=== PATIENT | female | born 1965 | race Two or more races ===

== ENCOUNTER 2022-12-28 02:12 | Inpatient (IN) | payer MEDICAID, OTHER ==
[~2022-12-28] VITALS: Ht 160 cm; Wt 132.6 kg
[2022-12-28] MEDS ORDERED: DONNATAL 5ml ORAL Elix (BELLADONNA ALK-PHENOBARB) PO ONE (02:45)
[2022-12-28] MEDS ORDERED: MAALOX PLUS or MAALOX 30 ML PO ONE (02:45)
[2022-12-28] MEDS ORDERED: LIDOCAINE VISCOUS 2% 15ML UD PO ONE (02:45)
[2022-12-28 03:28] LABS: Alanine Aminotransferase 13 U/L (7-40); Albumin 4.4 g/dL (3.2-4.8); Alkaline Phosphatase 122 U/L (46-116); Anion Gap 6 (5-15); Aspartate Aminotransferase 19 U/L (13-40); BUN/Creatinine Ratio 15.5 (10.0-20.0); Basophils # (auto) 0.1 10 ^3/uL (0-0.2); Basophils % (auto) 0.7 % (0.0-2.0); Blood Urea Nitrogen 13 mg/dL (9-23); Calcium 9.3 mg/dL (8.7-10.4); Carbon Dioxide 26 mmol/L (20-30); Chloride 103 mmol/L (98-107); Eosinophils # (auto) 0.2 10 ^3/uL (0-0.8); Eosinophils % (auto) 1.4 % (0.0-7.0); Glucose 111 mg/dL (74-106); Hematocrit 42.6 % (36.0-46.0); Hemoglobin 14.1 g/dL (12.2-16.2); Lipase 42 U/L (12-53); Lymphocytes # (auto) 1.9 10 ^3/uL (0.4-5.4); Lymphocytes % (auto) 15.3 % (10.0-50.0); Mean Corpuscular Hemoglobin 29.1 pg (28.0-32.0); Mean Corpuscular Hgb Conc. 33.2 g/dL (32.0-36.0); Mean Corpuscular Volume 87.7 fL (80.0-100.0); Monocytes # (auto) 0.7 10 ^3/uL (0-1.3); Monocytes % (auto) 5.5 % (0.0-12.0); Neutrophils # (auto) 9.4 10 ^3/uL (1.6-8.6); Neutrophils % (auto) 77.1 % (37.0-80.0); Nucleated Red Blood Cells % 0.1 %; Potassium 4.2 mmol/L (3.5-5.1); Red Blood Cells 4.85 10^6/uL (4.0-5.20); Red Cell Distribution Width 13.6 % (11.8-14.3); Sodium 135 mmol/L (136-145); White Blood Cell 12.2 10^3/uL (4.4-10.8)
[2022-12-28 03:29] LABS: Bilirubin, Total 0.8 mg/dL (0.2-1.0); Total Protein 7.2 g/dL (5.7-8.2)
[2022-12-28] MEDS ORDERED: ONDANSETRON HCL 4 MG/2 ML VIAL IV ONE ×2 (04:30→07:00)
[2022-12-28] MEDS ORDERED: HYDROmorphone HCL 2 MG/ML VL/or syr IV ONE (04:30)
[2022-12-28] MEDS ORDERED: SODIUM CHLORIDE 0.9% 1,000 ML IV ONE (07:00)
[2022-12-28] MEDS ORDERED: cefTRIAXone 1GM/50ML D5W 50 ML IV ONE (07:00)
[2022-12-28] MEDS ORDERED: KETOROLAC TROMETH 30 MG/ML 1ML VIAL IV ONE (07:00)
[2022-12-28] MEDS ORDERED: metroNIDAZOLE 500MG/100ML 100 ML IV ONE (07:00)
[2022-12-28] MEDS ORDERED: ONDANSETRON HCL 4 MG/2 ML VIAL IV PRN (11:30)
[2022-12-28] MEDS ORDERED: DOCUSATE SOD 100 MG CAP PO PRN (11:30)
[2022-12-28] MEDS ORDERED: ACETAMINOPHEN 325 MG TAB PO PRN (11:30)
[2022-12-28] MEDS ORDERED: HYDROcodone-ACET 5/325MG TAB PO PRN (11:30)
[2022-12-28] MEDS ORDERED: hydrALAZINE HCL 20 MG/ML VL IV PRN (11:45)
[2022-12-28] MEDS ORDERED: IPRATROPIUM BROM 0.5 MG/2.5ML INH SOL NEB PRN (11:45)
[2022-12-28 11:47] VITALS: O2SAT 96
[2022-12-28] MEDS ORDERED: ALBUTEROL MEDNEB 2.5 mg/3ml NEB NEB PRN (12:00)
[2022-12-28 12:22] LABS: INR 0.97 (0.9-1.15); Partial Thromboplastin Time 25.6 SEC (24.5-34.5); Prothrombin Time 10.2 sec (9.3-11.8)
[2022-12-28 14:23] VITALS: BP 152/97; PULSE 90; RESP 16; TEMP 97.6; O2SAT 96
[2022-12-28] MEDS: metroNIDAZOLE 500MG/100ML 100 ML IV SCH ×2 (15:30→21:21)
[2022-12-28 17:00] VITALS: BP 136/74; PULSE 92; RESP 17; TEMP 98.3; O2SAT 98
[2022-12-28] MEDS ORDERED: APIX5TAB PO (17:00)
[2022-12-28] MEDS ORDERED: LISI20TA56 PO (17:00)
[2022-12-28] MEDS ORDERED: INFLUENZA QUAD 2023-2024 0.5 ML SYRG IM ONE (18:00)
[2022-12-28 19:20] VITALS: O2SAT 98
[2022-12-28 20:00] VITALS: PULSE 95; RESP 17; O2SAT 96
[2022-12-28 22:00] VITALS: BP 142/95; PULSE 95; RESP 17; TEMP 98.6; O2SAT 96
[2022-12-29] VITALS (8 sets, daily range): BP systolic 98–136; BP diastolic 44–78; PULSE 89–95; RESP 16–18; TEMP 97.7–98.7; O2SAT 92–96
[2022-12-29] MEDS: HYDROmorphone HCL 2 MG/ML VL/or syr IV PRN ×2 (00:31→20:25)
[2022-12-29] MEDS: metroNIDAZOLE 500MG/100ML 100 ML IV SCH ×3 (05:40→22:00)
[2022-12-29 06:05] LABS: Basophils # (auto) 0.1 10 ^3/uL (0-0.2); Basophils % (auto) 0.7 % (0.0-2.0); Eosinophils # (auto) 0.2 10 ^3/uL (0-0.8); Eosinophils % (auto) 2.3 % (0.0-7.0); Hematocrit 40.8 % (36.0-46.0); Hemoglobin 13.2 g/dL (12.2-16.2); Lymphocytes # (auto) 1.9 10 ^3/uL (0.4-5.4); Lymphocytes % (auto) 18.1 % (10.0-50.0); Mean Corpuscular Hemoglobin 28.8 pg (28.0-32.0); Mean Corpuscular Hgb Conc. 32.5 g/dL (32.0-36.0); Mean Corpuscular Volume 88.8 fL (80.0-100.0); Monocytes # (auto) 0.9 10 ^3/uL (0-1.3); Neutrophils # (auto) 7.3 10 ^3/uL (1.6-8.6); Neutrophils % (auto) 69.9 % (37.0-80.0); Nucleated Red Blood Cells % 0.1 %; Red Blood Cells 4.59 10^6/uL (4.0-5.20); Red Cell Distribution Width 14.3 % (11.8-14.3); White Blood Cell 10.4 10^3/uL (4.4-10.8)
[2022-12-29 06:18] LABS: Alanine Aminotransferase 12 U/L (7-40); Alkaline Phosphatase 111 U/L (46-116); Anion Gap 4 (5-15); Aspartate Aminotransferase 14 U/L (13-40); BUN/Creatinine Ratio 12.2 (10.0-20.0); Blood Urea Nitrogen 12 mg/dL (9-23); Carbon Dioxide 29 mmol/L (20-30); Chloride 103 mmol/L (98-107); Glucose 92 mg/dL (74-106); Potassium 4.2 mmol/L (3.5-5.1); Sodium 136 mmol/L (136-145)
[2022-12-29 06:19] LABS: Bilirubin, Total 1.4 mg/dL (0.2-1.0); Total Protein 6.6 g/dL (5.7-8.2)
[2022-12-29] MEDS: cefTRIAXone 1GM/50ML D5W 50 ML IV SCH (08:37)
[2022-12-29] MEDS: LISINOPRIL 20 MG TAB PO SCH (08:38)
[2022-12-29] MEDS: ENOXAPARIN SOD 40 MG/0.4 ML SYRINGE SC SCH (08:38)
[2022-12-29 09:25] LABS: LDL Cholesterol 85 mg/dL (< 100); Triglycerides 65 mg/dL (< 150)
[2022-12-29 09:27] LABS: Cholesterol 142 mg/dL (< 200)
[2022-12-29 15:52] LABS: HDL Cholesterol 54 mg/dL (40-59)
[2022-12-30] VITALS (9 sets, daily range): BP systolic 104–135; BP diastolic 53–75; PULSE 86–98; RESP 16–22; TEMP 98.1–98.6; O2SAT 91–99
[2022-12-30] MEDS: metroNIDAZOLE 500MG/100ML 100 ML IV SCH ×3 (06:46→21:37)
[2022-12-30] MEDS: ENOXAPARIN SOD 40 MG/0.4 ML SYRINGE SC SCH (10:13)
[2022-12-30] MEDS: cefTRIAXone 1GM/50ML D5W 50 ML IV SCH (10:13)
[2022-12-30] MEDS: LISINOPRIL 20 MG TAB PO SCH (10:13)
[2022-12-30] MEDS: HYDROmorphone HCL 2 MG/ML VL/or syr IV PRN (22:00)
[2022-12-31] VITALS (9 sets, daily range): BP systolic 95–124; BP diastolic 45–77; PULSE 76–95; RESP 16–20; TEMP 98.1–98.9; O2SAT 92–97
[2022-12-31] MEDS: metroNIDAZOLE 500MG/100ML 100 ML IV SCH ×3 (05:52→21:32)
[2022-12-31] MEDS: ENOXAPARIN SOD 40 MG/0.4 ML SYRINGE SC SCH (08:55)
[2022-12-31] MEDS: LISINOPRIL 20 MG TAB PO SCH (08:55)
[2022-12-31] MEDS: cefTRIAXone 1GM/50ML D5W 50 ML IV SCH (08:55)
[2022-12-31] MEDS: HYDROmorphone HCL 2 MG/ML VL/or syr IV PRN ×2 (15:16→21:32)
[2022-12-31 19:32] LABS: Basophils # (auto) 0 10 ^3/uL (0-0.2); Basophils % (auto) 0.4 % (0.0-2.0); Eosinophils # (auto) 0.2 10 ^3/uL (0-0.8); Hemoglobin 11.9 g/dL (12.2-16.2); Lymphocytes # (auto) 1.3 10 ^3/uL (0.4-5.4); Lymphocytes % (auto) 18.9 % (10.0-50.0); Mean Corpuscular Hemoglobin 28.9 pg (28.0-32.0); Mean Corpuscular Hgb Conc. 32.3 g/dL (32.0-36.0); Mean Corpuscular Volume 89.5 fL (80.0-100.0); Monocytes # (auto) 0.6 10 ^3/uL (0-1.3); Monocytes % (auto) 8.2 % (0.0-12.0); Neutrophils # (auto) 4.8 10 ^3/uL (1.6-8.6); Neutrophils % (auto) 69.5 % (37.0-80.0); Red Blood Cells 4.14 10^6/uL (4.0-5.20); Red Cell Distribution Width 14.3 % (11.8-14.3); White Blood Cell 6.9 10^3/uL (4.4-10.8)
[2022-12-31 19:51] LABS: INR 1.05 (0.9-1.15); Partial Thromboplastin Time 28.3 SEC (24.5-34.5)
[2022-12-31 19:52] LABS: Alanine Aminotransferase 251 U/L (7-40); Alkaline Phosphatase 248 U/L (46-116)
[2022-12-31 19:53] LABS: Albumin 3.8 g/dL (3.2-4.8); Anion Gap 9 (5-15); Aspartate Aminotransferase 513 U/L (13-40); BUN/Creatinine Ratio 10.5 (10.0-20.0); Bilirubin, Total 0.7 mg/dL (0.2-1.0); Blood Urea Nitrogen 10 mg/dL (9-23); Calcium 8.8 mg/dL (8.7-10.4); Carbon Dioxide 25 mmol/L (20-30); Chloride 105 mmol/L (98-107); Glucose 156 mg/dL (74-106); Sodium 139 mmol/L (136-145); Total Protein 6.3 g/dL (5.7-8.2)
[2023-01-01 05:00] VITALS: BP 119/77; PULSE 89; RESP 19; TEMP 98.2; O2SAT 94
[2023-01-01] MEDS: metroNIDAZOLE 500MG/100ML 100 ML IV SCH ×3 (05:37→21:05)
[2023-01-01] MEDS ORDERED: BUPIVACAINE HCL 0.25% P/F 10 ML VIAL ONE (07:28)
[2023-01-01] MEDS ORDERED: LIDOCAINE 1% HCL (LOCAL ANESTH.) INJ 20ML MDV ONE (07:29)
[2023-01-01] MEDS ORDERED: SUGAMMADEX 200mg/2ml Vial (100MG/ML) IV ONE (07:58)
[2023-01-01 08:00] VITALS: BP 141/82; PULSE 70; RESP 21; TEMP 97.8; O2SAT 93
[2023-01-01] MEDS ORDERED: fentaNYL CITRATE 100 MCG/2 ML VL ONE (08:01)
[2023-01-01] MEDS ORDERED: KETOROLAC TROMETH 30 MG/ML 1ML VIAL ONE (08:02)
[2023-01-01] MEDS ORDERED: GLYCOPYRROLATE 0.2 MG/ML 1ML VIAL ONE (08:02)
[2023-01-01] MEDS ORDERED: DexAMETHasone SOD PHOS 10MG/1ML VIAL INJ ONE (08:02)
[2023-01-01] MEDS ORDERED: PHENYLEPHRINE HCL 10 MG/ML VL ONE (08:02)
[2023-01-01] MEDS ORDERED: ePHEDrine SULFATE 50 MG/ML AMP ONE (08:02)
[2023-01-01] MEDS ORDERED: LIDOCAINE 2% (LOCAL ANESTH.) PF 5ml SDV ONE (08:02)
[2023-01-01] MEDS ORDERED: PROPOFOL 10 MG/ML 20 ML IV ONE (08:02)
[2023-01-01] MEDS ORDERED: ROCURONIUM 10MG/ML 10ML VIAL IV ONE (08:02)
[2023-01-01] MEDS ORDERED: ceFAZolin 2 GM/D5W100ml 100 ML IV ONE (08:14)
[2023-01-01] MEDS ORDERED: MIDAZOLAM HCL 2MG/2ML 2ml VIAL (1mg/ml) ONE (08:16)
[2023-01-01] MEDS ORDERED: HYDROmorphone HCL 2 MG/ML VL/or syr ONE (08:16)
[2023-01-01 09:31] LABS: Hepatitis B Surface Antigen Negative (Negative)
[2023-01-01 09:53] LABS: Hepatitis C Antibody Negative (Negative)
[2023-01-01] MEDS ORDERED: ONDANSETRON HCL 4 MG/2 ML VIAL IV PRN (10:00)
[2023-01-01] MEDS ORDERED: FAMOTIDINE (10MG/ML) 2ML VL IV ONE ×2 (10:00→10:11)
[2023-01-01] MEDS: HYDROmorphone HCL 2 MG/ML VL/or syr IV PRN ×5 (10:35→22:17)
[2023-01-01] MEDS ORDERED: MEPERIDINE HCL (25 MG/ML) 1ML VIAL ONE (10:41)
[2023-01-01] MEDS: LISINOPRIL 20 MG TAB PO SCH (10:53)
[2023-01-01] MEDS: cefTRIAXone 1GM/50ML D5W 50 ML IV SCH (10:54)
[2023-01-01] MEDS: ENOXAPARIN SOD 40 MG/0.4 ML SYRINGE SC SCH (10:54)
[2023-01-01 12:00] VITALS: BP_SYST 120; BP_SYST 148; BP_DIAS 69; BP_DIAS 81; PULSE 58; PULSE 86; RESP 18; RESP 20; TEMP 97.2; TEMP 98.2; O2SAT 95
[2023-01-01 16:00] VITALS: BP 111/53; PULSE 93; RESP 21; TEMP 98.4; O2SAT 90
[2023-01-01 19:20] VITALS: O2SAT 91; O2SAT 94
[2023-01-01 22:00] VITALS: BP 109/71; PULSE 94; RESP 19; TEMP 97.5; O2SAT 92
[2023-01-02] VITALS (7 sets, daily range): BP systolic 96–146; BP diastolic 45–82; PULSE 75–95; RESP 18–21; TEMP 97.5–98.8; O2SAT 91–100
[2023-01-02] MEDS: HYDROmorphone HCL 2 MG/ML VL/or syr IV PRN ×3 (02:44→18:13)
[2023-01-02] MEDS: metroNIDAZOLE 500MG/100ML 100 ML IV SCH ×3 (05:24→21:14)
[2023-01-02 07:33] LABS: Basophils # (auto) 0 10 ^3/uL (0-0.2); Basophils % (auto) 0.3 % (0.0-2.0); Eosinophils # (auto) 0 10 ^3/uL (0-0.8); Eosinophils % (auto) 0.1 % (0.0-7.0); Hematocrit 33.9 % (36.0-46.0); Hemoglobin 10.8 g/dL (12.2-16.2); Lymphocytes # (auto) 1.3 10 ^3/uL (0.4-5.4); Lymphocytes % (auto) 10.3 % (10.0-50.0); Mean Corpuscular Hemoglobin 28.8 pg (28.0-32.0); Mean Corpuscular Hgb Conc. 31.9 g/dL (32.0-36.0); Mean Corpuscular Volume 90.2 fL (80.0-100.0); Monocytes # (auto) 0.8 10 ^3/uL (0-1.3); Monocytes % (auto) 6.4 % (0.0-12.0); Neutrophils # (auto) 10.7 10 ^3/uL (1.6-8.6); Neutrophils % (auto) 82.9 % (37.0-80.0); Nucleated Red Blood Cells % 0.1 %; Red Blood Cells 3.76 10^6/uL (4.0-5.20); Red Cell Distribution Width 14.4 % (11.8-14.3); White Blood Cell 12.9 10^3/uL (4.4-10.8)
[2023-01-02] MEDS: ENOXAPARIN SOD 40 MG/0.4 ML SYRINGE SC SCH (08:59)
[2023-01-02] MEDS: cefTRIAXone 1GM/50ML D5W 50 ML IV SCH (08:59)
[2023-01-02] MEDS: LISINOPRIL 20 MG TAB PO SCH (09:01)
[2023-01-03] MEDS: HYDROmorphone HCL 2 MG/ML VL/or syr IV PRN ×2 (00:31→12:23)
[2023-01-03 05:00] VITALS: BP 126/74; PULSE 96; RESP 19; TEMP 97.8; O2SAT 96
[2023-01-03] MEDS: metroNIDAZOLE 500MG/100ML 100 ML IV SCH ×2 (05:33→13:36)
[2023-01-03 08:40] VITALS: BP 131/86; PULSE 98; RESP 18; TEMP 97.9; O2SAT 92
[2023-01-03] MEDS: ENOXAPARIN SOD 40 MG/0.4 ML SYRINGE SC SCH (09:25)
[2023-01-03] MEDS: LISINOPRIL 20 MG TAB PO SCH (09:25)
[2023-01-03 09:26] LABS: Basophils # (auto) 0.1 10 ^3/uL (0-0.2); Basophils % (auto) 0.6 % (0.0-2.0); Eosinophils # (auto) 0.2 10 ^3/uL (0-0.8); Eosinophils % (auto) 1.8 % (0.0-7.0); Hematocrit 36.4 % (36.0-46.0); Hemoglobin 11.7 g/dL (12.2-16.2); Lymphocytes # (auto) 2.4 10 ^3/uL (0.4-5.4); Lymphocytes % (auto) 25.2 % (10.0-50.0); Mean Corpuscular Hemoglobin 28.7 pg (28.0-32.0); Mean Corpuscular Hgb Conc. 32.1 g/dL (32.0-36.0); Mean Corpuscular Volume 89.3 fL (80.0-100.0); Monocytes # (auto) 0.9 10 ^3/uL (0-1.3); Monocytes % (auto) 9.2 % (0.0-12.0); Neutrophils # (auto) 5.9 10 ^3/uL (1.6-8.6); Neutrophils % (auto) 63.2 % (37.0-80.0); Red Blood Cells 4.08 10^6/uL (4.0-5.20); Red Cell Distribution Width 14.2 % (11.8-14.3); White Blood Cell 9.4 10^3/uL (4.4-10.8)
[2023-01-03] MEDS: cefTRIAXone 1GM/50ML D5W 50 ML IV SCH (09:26)
[2023-01-03 09:32] VITALS: BP 131/86; PULSE 89; RESP 20; O2SAT 96
[2023-01-03 09:41] LABS: Alanine Aminotransferase 104 U/L (7-40); Albumin 3.8 g/dL (3.2-4.8); Alkaline Phosphatase 152 U/L (46-116); Anion Gap 8 (5-15); Aspartate Aminotransferase 44 U/L (13-40); BUN/Creatinine Ratio 16.1 (10.0-20.0); Blood Urea Nitrogen 15 mg/dL (9-23); Carbon Dioxide 26 mmol/L (20-30); Chloride 106 mmol/L (98-107); Glucose 113 mg/dL (74-106); Potassium 3.7 mmol/L (3.5-5.1); Sodium 140 mmol/L (136-145)
[2023-01-03 09:42] LABS: Bilirubin, Total 0.3 mg/dL (0.2-1.0); Total Protein 6.2 g/dL (5.7-8.2)
[2023-01-03 13:06] VITALS: BP 162/100; PULSE 98; RESP 18; TEMP 98.6; O2SAT 92
[2023-01-03] MEDS ORDERED: METR-344 PO (15:42)
[2023-01-03] MEDS ORDERED: HYDR-4902 PO (15:42)
[2023-01-03] MEDS ORDERED: LISI20TA56 PO (15:42)
[2023-01-03] MEDS ORDERED: LEVO500T91 PO (15:42)
[2023-01-03 17:21] VITALS: BP 139/78; PULSE 89; RESP 18; TEMP 98.4; O2SAT 92
== END 2023-01-03 17:51 | disposition home or self-care (01) | DRG 710 ==
LOC: ER 02:12 → EDBD 02:12 → OVERFLOW 11:30 → WEST WING 15:27
PROVIDERS: ADMIT Nurse Practitioner Family; ATTEND Nurse Practitioner Acute Care
PROC: 0FT44ZZ Resection of Gallbladder, Percutaneous Endoscopic Approach (ICD-10-PCS; principal; 2023-01-01 08:26)
DX: A41.9 Sepsis, unspecified organism (principal); K80.00 Calculus of gallbladder with acute cholecystitis without obstruction; Z68.43 Body mass index [BMI] 50.0-59.9, adult; K57.32 Diverticulitis of large intestine without perforation or abscess without bleeding; I10 Essential (primary) hypertension; E66.01 Morbid (severe) obesity due to excess calories; J44.9 Chronic obstructive pulmonary disease, unspecified; Z88.5 Allergy status to narcotic agent; Z86.718 Personal history of other venous thrombosis and embolism; Z79.899 Other long term (current) drug therapy; Z79.01 Long term (current) use of anticoagulants; Z86.711 Personal history of pulmonary embolism; Z80.9 Family history of malignant neoplasm, unspecified
CPT/HCPCS: 36415; 71045; 74176; 76705; 78226; 80053; 80061; 82248; 83690; 84484; 85025; 85610; 85730; 86803; 86850; 86900; 86901; 87040; 87340; 93005; 93970; 94640; 96361; 96365; 96367; 96375; 97163; G0378; J0696; J1100; J1885; J2001; J2250; J2405; J2704; J3490

== ENCOUNTER 2023-01-15 16:17 | Emergency (ER) | payer MEDICAID ==
[~2023-01-15] VITALS: Ht 160 cm; Wt 127.2 kg
[~2023-01-15 16:17] MED LIST: APIX5TAB PO; HYDR-4902 PO; LEVO500T91 PO; LISI20TA56 PO; METR-344 PO
[2023-01-15 16:55] VITALS: BP 119/76; PULSE 86; RESP 20; O2SAT 98
[2023-01-15 18:35] LABS: Basophils # (auto) 0.1 10 ^3/uL (0-0.2); Basophils % (auto) 0.6 % (0.0-2.0); Eosinophils # (auto) 0.1 10 ^3/uL (0-0.8); Eosinophils % (auto) 1.2 % (0.0-7.0); Hematocrit 38.1 % (36.0-46.0); Hemoglobin 12.4 g/dL (12.2-16.2); Lymphocytes # (auto) 1.9 10 ^3/uL (0.4-5.4); Lymphocytes % (auto) 16.2 % (10.0-50.0); Mean Corpuscular Hemoglobin 28.5 pg (28.0-32.0); Mean Corpuscular Hgb Conc. 32.7 g/dL (32.0-36.0); Mean Corpuscular Volume 87.1 fL (80.0-100.0); Monocytes % (auto) 8.1 % (0.0-12.0); Neutrophils # (auto) 8.8 10 ^3/uL (1.6-8.6); Neutrophils % (auto) 73.9 % (37.0-80.0); Red Blood Cells 4.37 10^6/uL (4.0-5.20); Red Cell Distribution Width 13.9 % (11.8-14.3); White Blood Cell 11.9 10^3/uL (4.4-10.8)
[2023-01-15 18:54] LABS: Alanine Aminotransferase 129 U/L (7-40); Albumin 3.1 g/dL (3.2-4.8); Alkaline Phosphatase 247 U/L (46-116); Anion Gap 9 (5-15); Aspartate Aminotransferase 209 U/L (13-40); BUN/Creatinine Ratio 21.7 (10.0-20.0); Blood Urea Nitrogen 13 mg/dL (9-23); Calcium 6.5 mg/dL (8.5-10.1); Carbon Dioxide 19 mmol/L (20-30); Chloride 107 mmol/L (98-107); Glucose 76 mg/dL (74-106); Potassium 4.4 mmol/L (3.5-5.1); Sodium 135 mmol/L (136-145); Total Protein 5.1 g/dL (5.7-8.2)
== END 2023-01-15 23:43 | disposition left against medical advice (07) ==
LOC: ER 16:17 → EDBD 16:17 → ER 23:41
DX: M54.9 Dorsalgia, unspecified (principal); R10.9 Unspecified abdominal pain; Z53.21 Procedure and treatment not carried out due to patient leaving prior to being seen by health care provider
CPT/HCPCS: 36415; 80053; 83605; 85025; 87040; 93005

== ENCOUNTER 2023-01-25 10:24 | Inpatient (IN) | payer MEDICAID ==
[~2023-01-25] VITALS: Ht 160 cm; Wt 127.9 kg
[2023-01-25] MEDS ORDERED: MORPHINE SULFATE INJ 2 MG/ml SYRG IV PRN (11:30)
[2023-01-25] MEDS ORDERED: hydrALAZINE HCL 20 MG/ML VL IV PRN (11:30)
[2023-01-25] MEDS ORDERED: NITROGLYCERIN 0.4 MG SL TAB SL PRN (11:30)
[2023-01-25 12:17] LABS: Basophils # (auto) 0.1 10 ^3/uL (0-0.2); Basophils % (auto) 0.6 % (0.0-2.0); Eosinophils # (auto) 0.2 10 ^3/uL (0-0.8); Eosinophils % (auto) 1.9 % (0.0-7.0); Hemoglobin 13.9 g/dL (12.2-16.2); Lymphocytes # (auto) 2.7 10 ^3/uL (0.4-5.4); Lymphocytes % (auto) 24.7 % (10.0-50.0); Mean Corpuscular Hemoglobin 28.5 pg (28.0-32.0); Mean Corpuscular Hgb Conc. 32.3 g/dL (32.0-36.0); Mean Corpuscular Volume 88.1 fL (80.0-100.0); Monocytes % (auto) 8.8 % (0.0-12.0); Neutrophils # (auto) 6.9 10 ^3/uL (1.6-8.6); Nucleated Red Blood Cells % 0.1 %; Red Blood Cells 4.88 10^6/uL (4.0-5.20); Red Cell Distribution Width 14.4 % (11.8-14.3); White Blood Cell 10.8 10^3/uL (4.4-10.8)
[2023-01-25 12:47] LABS: INR 1.11 (0.9-1.15); Partial Thromboplastin Time 28.5 SEC (24.5-34.5); Prothrombin Time 11.6 sec (9.3-11.8)
[2023-01-25 12:51] LABS: Alanine Aminotransferase 301 U/L (7-40); Alkaline Phosphatase 828 U/L (46-116); Anion Gap 13 (5-15); Aspartate Aminotransferase 201 U/L (13-40); BUN/Creatinine Ratio 15.5 (10.0-20.0); Blood Urea Nitrogen 28 mg/dL (9-23); Calcium 10.3 mg/dL (8.5-10.1); Carbon Dioxide 17 mmol/L (20-30); Chloride 102 mmol/L (98-107); Glucose 100 mg/dL (74-106); Potassium 3.6 mmol/L (3.5-5.1); Sodium 132 mmol/L (136-145)
[2023-01-25 12:52] LABS: Bilirubin, Total 0.7 mg/dL (0.2-1.0); Total Protein 8.5 g/dL (5.7-8.2)
[2023-01-25 13:00] VITALS: BP 124/29; PULSE 61; RESP 17; TEMP 98.1; O2SAT 97
[2023-01-25 13:33] LABS: Lactic Acid w/Reflex 2.1 mmol/L (0.4-2.0)
[2023-01-25] MEDS ORDERED: PIPERACILLIN-TAZOB 3.375GM 100 ML IV SCH (14:00)
[2023-01-25] MEDS ORDERED: LACTATED RINGER'S 1,000 ML IV ONE (14:00)
[2023-01-25 14:21] VITALS: BP 124/59; PULSE 61; RESP 17; TEMP 98.1; O2SAT 97
[2023-01-25] MEDS: HYDROmorphone HCL 2 MG/ML VL/or syr IV PRN ×2 (14:44→22:05)
[2023-01-25 15:07] VITALS: PULSE 61; RESP 17; O2SAT 97
[2023-01-25] MEDS ORDERED: INFLUENZA QUAD 2023-2024 0.5 ML SYRG IM ONE (15:30)
[2023-01-25] MEDS: D5W/SOD CHLO 0.9% 1,000 ML IV SCH (16:32)
[2023-01-25 17:00] VITALS: BP 104/31; PULSE 89; RESP 18; TEMP 98.5; O2SAT 95
[2023-01-25] MEDS: ONDANSETRON HCL 4 MG/2 ML VIAL IV PRN (22:05)
[2023-01-25 22:59] VITALS: BP 111/60; PULSE 68; RESP 20; TEMP 97.3; O2SAT 99
[2023-01-26] VITALS (7 sets, daily range): BP systolic 93–117; BP diastolic 52–67; PULSE 58–79; RESP 18–19; TEMP 97.4–97.7; O2SAT 18–100
[2023-01-26] MEDS: PIPERACILLIN-TAZOB 3.375GM 100 ML IV SCH ×3 (02:17→16:35)
[2023-01-26] MEDS: D5W/SOD CHLO 0.9% 1,000 ML IV SCH ×4 (03:30→19:30)
[2023-01-26] MEDS: HYDROmorphone HCL 2 MG/ML VL/or syr IV PRN ×5 (04:30→22:13)
[2023-01-26] MEDS: PANTOPRAZOLE 40 MG/10 ML VIAL INJ IV SCH (08:48)
[2023-01-26] MEDS: ENOXAPARIN SOD 40 MG/0.4 ML SYRINGE SC SCH (08:48)
[2023-01-26] MEDS: ONDANSETRON HCL 4 MG/2 ML VIAL IV PRN ×3 (08:48→22:14)
[2023-01-27] VITALS (7 sets, daily range): BP systolic 93–118; BP diastolic 42–75; PULSE 59–99; RESP 16–22; TEMP 97.2–98.2; O2SAT 16–99
[2023-01-27] MEDS: D5W/SOD CHLO 0.9% 1,000 ML IV SCH (00:19)
[2023-01-27] MEDS: PIPERACILLIN-TAZOB 3.375GM 100 ML IV SCH ×4 (00:22→23:36)
[2023-01-27] MEDS: HYDROmorphone HCL 2 MG/ML VL/or syr IV PRN ×3 (04:02→13:33)
[2023-01-27 07:26] LABS: Alanine Aminotransferase 166 U/L (7-40); Albumin 4.1 g/dL (3.2-4.8); Alkaline Phosphatase 557 U/L (46-116); Anion Gap 9 (5-15); Aspartate Aminotransferase 72 U/L (13-40); BUN/Creatinine Ratio 18.8 (10.0-20.0); Bilirubin, Total 0.5 mg/dL (0.2-1.0); Blood Urea Nitrogen 36 mg/dL (9-23); Calcium 9.1 mg/dL (8.5-10.1); Carbon Dioxide 19 mmol/L (20-30); Chloride 108 mmol/L (98-107); Glucose 113 mg/dL (74-106); Potassium 4.3 mmol/L (3.5-5.1); Sodium 136 mmol/L (136-145)
[2023-01-27 07:27] LABS: Basophils # (auto) 0 10 ^3/uL (0-0.2); Basophils % (auto) 0.5 % (0.0-2.0); Eosinophils # (auto) 0.2 10 ^3/uL (0-0.8); Eosinophils % (auto) 3.2 % (0.0-7.0); Hematocrit 34.8 % (36.0-46.0); Hemoglobin 11.3 g/dL (12.2-16.2); Lymphocytes # (auto) 2.4 10 ^3/uL (0.4-5.4); Lymphocytes % (auto) 31.8 % (10.0-50.0); Mean Corpuscular Hemoglobin 28.5 pg (28.0-32.0); Mean Corpuscular Hgb Conc. 32.5 g/dL (32.0-36.0); Mean Corpuscular Volume 87.8 fL (80.0-100.0); Monocytes # (auto) 0.7 10 ^3/uL (0-1.3); Monocytes % (auto) 9.2 % (0.0-12.0); Neutrophils # (auto) 4.3 10 ^3/uL (1.6-8.6); Neutrophils % (auto) 55.3 % (37.0-80.0); Red Blood Cells 3.96 10^6/uL (4.0-5.20); Red Cell Distribution Width 14.2 % (11.8-14.3); White Blood Cell 7.7 10^3/uL (4.4-10.8)
[2023-01-27] MEDS: ENOXAPARIN SOD 40 MG/0.4 ML SYRINGE SC SCH (08:18)
[2023-01-27] MEDS: PANTOPRAZOLE 40 MG/10 ML VIAL INJ IV SCH (08:18)
[2023-01-27] MEDS: ONDANSETRON HCL 4 MG/2 ML VIAL IV PRN (08:43)
[2023-01-27] MEDS: HYDROcodone-ACET 5/325MG TAB PO PRN ×2 (16:20→22:40)
[2023-01-28 05:00] VITALS: BP 127/69; PULSE 80; RESP 19; TEMP 97.5; O2SAT 96
[2023-01-28 07:50] LABS: Alanine Aminotransferase 147 U/L (7-40); Albumin 4.3 g/dL (3.2-4.8); Alkaline Phosphatase 477 U/L (46-116); Anion Gap 7 (5-15); Aspartate Aminotransferase 60 U/L (13-40); BUN/Creatinine Ratio 18.3 (10.0-20.0); Blood Urea Nitrogen 28 mg/dL (9-23); Calcium 9.5 mg/dL (8.5-10.1); Carbon Dioxide 21 mmol/L (20-30); Chloride 110 mmol/L (98-107); Glucose 101 mg/dL (74-106); Sodium 138 mmol/L (136-145)
[2023-01-28 07:51] LABS: Bilirubin, Total 0.5 mg/dL (0.2-1.0); Total Protein 7.3 g/dL (5.7-8.2)
[2023-01-28 08:00] VITALS: PULSE 82; RESP 16; O2SAT 97
[2023-01-28] MEDS: PIPERACILLIN-TAZOB 3.375GM 100 ML IV SCH ×3 (08:03→23:33)
[2023-01-28] MEDS: HYDROcodone-ACET 5/325MG TAB PO PRN ×4 (08:03→23:43)
[2023-01-28] MEDS: PANTOPRAZOLE 40 MG/10 ML VIAL INJ IV SCH (11:19)
[2023-01-28] MEDS: ENOXAPARIN SOD 40 MG/0.4 ML SYRINGE SC SCH (11:20)
[2023-01-28 13:00] VITALS: BP 117/73; PULSE 79; RESP 14; TEMP 98.4; O2SAT 96
[2023-01-28 17:00] VITALS: BP 102/65; PULSE 80; RESP 14; TEMP 97.9; O2SAT 95
[2023-01-28 20:00] VITALS: RESP 16; O2SAT 97
[2023-01-28 22:00] VITALS: BP 124/88; PULSE 76; RESP 18; TEMP 98.2; O2SAT 93
[2023-01-29 05:00] VITALS: BP 116/44; PULSE 76; RESP 19; TEMP 97.8; O2SAT 96
[2023-01-29 06:32] LABS: Basophils # (auto) 0.1 10 ^3/uL (0-0.2); Basophils % (auto) 0.7 % (0.0-2.0); Eosinophils # (auto) 0.2 10 ^3/uL (0-0.8); Hematocrit 34.1 % (36.0-46.0); Hemoglobin 10.9 g/dL (12.2-16.2); Lymphocytes # (auto) 2.8 10 ^3/uL (0.4-5.4); Lymphocytes % (auto) 37.1 % (10.0-50.0); Mean Corpuscular Hemoglobin 28.2 pg (28.0-32.0); Mean Corpuscular Hgb Conc. 32.1 g/dL (32.0-36.0); Monocytes # (auto) 0.6 10 ^3/uL (0-1.3); Monocytes % (auto) 8.2 % (0.0-12.0); Neutrophils # (auto) 3.8 10 ^3/uL (1.6-8.6); Nucleated Red Blood Cells % 0.1 %; Red Blood Cells 3.87 10^6/uL (4.0-5.20); Red Cell Distribution Width 14.4 % (11.8-14.3); White Blood Cell 7.4 10^3/uL (4.4-10.8)
[2023-01-29] MEDS: HYDROcodone-ACET 5/325MG TAB PO PRN ×3 (06:41→20:16)
[2023-01-29 06:44] LABS: Alanine Aminotransferase 154 U/L (7-40); Albumin 3.9 g/dL (3.2-4.8); Alkaline Phosphatase 384 U/L (46-116); Anion Gap 7 (5-15); Aspartate Aminotransferase 119 U/L (13-40); BUN/Creatinine Ratio 17.1 (10.0-20.0); Bilirubin, Total 0.5 mg/dL (0.2-1.0); Blood Urea Nitrogen 21 mg/dL (9-23); Calcium 8.9 mg/dL (8.7-10.4); Carbon Dioxide 21 mmol/L (20-30); Chloride 110 mmol/L (98-107); Glucose 89 mg/dL (74-106); Potassium 4.4 mmol/L (3.5-5.1); Sodium 138 mmol/L (136-145)
[2023-01-29 06:45] LABS: Total Protein 6.8 g/dL (5.7-8.2)
[2023-01-29 09:09] VITALS: BP 90/42; PULSE 71; RESP 16; TEMP 98.6; O2SAT 95
[2023-01-29] MEDS: PANTOPRAZOLE 40 MG/10 ML VIAL INJ IV SCH (09:16)
[2023-01-29] MEDS: PIPERACILLIN-TAZOB 3.375GM 100 ML IV SCH ×2 (09:16→18:21)
[2023-01-29] MEDS: ENOXAPARIN SOD 40 MG/0.4 ML SYRINGE SC SCH (09:16)
[2023-01-29 12:50] VITALS: BP 114/52; PULSE 69; RESP 18; TEMP 98.4; O2SAT 97
[2023-01-29 16:56] VITALS: BP 110/46; PULSE 79; RESP 19; TEMP 98.6; O2SAT 96
[2023-01-29 20:00] VITALS: BP 133/81; PULSE 76; RESP 18; TEMP 98.1; O2SAT 98
[2023-01-29 22:00] VITALS: BP 133/81; PULSE 76; RESP 18; TEMP 98.1; O2SAT 98
[2023-01-30] MEDS: HYDROcodone-ACET 5/325MG TAB PO PRN ×3 (02:10→18:58)
[2023-01-30] MEDS: PIPERACILLIN-TAZOB 3.375GM 100 ML IV SCH ×3 (02:11→16:51)
[2023-01-30 05:00] VITALS: BP 111/66; PULSE 70; RESP 16; TEMP 97.9; O2SAT 94
[2023-01-30 09:00] VITALS: BP 99/50; PULSE 77; RESP 18; TEMP 98; O2SAT 94
[2023-01-30] MEDS: PANTOPRAZOLE 40 MG/10 ML VIAL INJ IV SCH (09:25)
[2023-01-30] MEDS: ENOXAPARIN SOD 40 MG/0.4 ML SYRINGE SC SCH (09:26)
[2023-01-30 10:09] LABS: Basophils # (auto) 0 10 ^3/uL (0-0.2); Basophils % (auto) 0.8 % (0.0-2.0); Eosinophils # (auto) 0.2 10 ^3/uL (0-0.8); Eosinophils % (auto) 3.4 % (0.0-7.0); Hematocrit 35.7 % (36.0-46.0); Hemoglobin 11.5 g/dL (12.2-16.2); Lymphocytes # (auto) 2.3 10 ^3/uL (0.4-5.4); Lymphocytes % (auto) 36.1 % (10.0-50.0); Mean Corpuscular Hemoglobin 28.6 pg (28.0-32.0); Mean Corpuscular Hgb Conc. 32.1 g/dL (32.0-36.0); Monocytes # (auto) 0.5 10 ^3/uL (0-1.3); Monocytes % (auto) 7.4 % (0.0-12.0); Neutrophils # (auto) 3.3 10 ^3/uL (1.6-8.6); Neutrophils % (auto) 52.3 % (37.0-80.0); Nucleated Red Blood Cells % 0.2 %; Red Blood Cells 4.01 10^6/uL (4.0-5.20); Red Cell Distribution Width 14.3 % (11.8-14.3); White Blood Cell 6.3 10^3/uL (4.4-10.8)
[2023-01-30 10:17] LABS: Chloride 111 mmol/L (98-107); Potassium 4.3 mmol/L (3.5-5.1); Sodium 140 mmol/L (136-145)
[2023-01-30 10:18] LABS: Anion Gap 7 (5-15); Carbon Dioxide 22 mmol/L (20-30)
[2023-01-30 10:19] LABS: Calcium 9.5 mg/dL (8.5-10.1)
[2023-01-30 10:24] LABS: BUN/Creatinine Ratio 17.8 (10.0-20.0); Blood Urea Nitrogen 16 mg/dL (9-23); Glucose 82 mg/dL (74-106)
[2023-01-30] MEDS: D5W/SOD CHL 0.45% 1,000 ML IV SCH ×2 (12:40→20:00)
[2023-01-30 13:00] VITALS: BP 129/84; PULSE 75; RESP 20; TEMP 98; O2SAT 95
[2023-01-30 17:00] VITALS: BP 98/59; PULSE 83; RESP 22; TEMP 97.6; O2SAT 95
[2023-01-30 20:30] VITALS: PULSE 78; RESP 20; O2SAT 95
[2023-01-30 22:00] VITALS: BP 112/60; PULSE 78; RESP 20; TEMP 98.1; O2SAT 95
[2023-01-31] MEDS: HYDROcodone-ACET 5/325MG TAB PO PRN ×5 (03:13→21:39)
[2023-01-31 05:00] VITALS: BP 98/62; PULSE 81; RESP 18; TEMP 97.7; O2SAT 95
[2023-01-31] MEDS: D5W/SOD CHL 0.45% 1,000 ML IV SCH ×2 (06:00→17:18)
[2023-01-31 06:54] LABS: Basophils # (auto) 0.1 10 ^3/uL (0-0.2); Basophils % (auto) 0.9 % (0.0-2.0); Eosinophils # (auto) 0.3 10 ^3/uL (0-0.8); Eosinophils % (auto) 3.7 % (0.0-7.0); Hematocrit 33.3 % (36.0-46.0); Hemoglobin 10.9 g/dL (12.2-16.2); Lymphocytes # (auto) 2.3 10 ^3/uL (0.4-5.4); Lymphocytes % (auto) 34.1 % (10.0-50.0); Mean Corpuscular Hgb Conc. 32.8 g/dL (32.0-36.0); Mean Corpuscular Volume 88.3 fL (80.0-100.0); Monocytes # (auto) 0.7 10 ^3/uL (0-1.3); Monocytes % (auto) 10.3 % (0.0-12.0); Neutrophils # (auto) 3.5 10 ^3/uL (1.6-8.6); Red Blood Cells 3.76 10^6/uL (4.0-5.20); Red Cell Distribution Width 14.5 % (11.8-14.3); White Blood Cell 6.8 10^3/uL (4.4-10.8)
[2023-01-31 07:11] LABS: Alanine Aminotransferase 277 U/L (7-40); Albumin 3.9 g/dL (3.2-4.8); Alkaline Phosphatase 384 U/L (46-116); Anion Gap 7 (5-15); Aspartate Aminotransferase 247 U/L (13-40); BUN/Creatinine Ratio 17.4 (10.0-20.0); Bilirubin, Total 0.5 mg/dL (0.2-1.0); Blood Urea Nitrogen 15 mg/dL (9-23); Calcium 9.1 mg/dL (8.5-10.1); Carbon Dioxide 23 mmol/L (20-30); Chloride 109 mmol/L (98-107); Glucose 97 mg/dL (74-106); Potassium 4.3 mmol/L (3.5-5.1); Sodium 139 mmol/L (136-145); Total Protein 6.7 g/dL (5.7-8.2)
[2023-01-31] MEDS: PIPERACILLIN-TAZOB 3.375GM 100 ML IV SCH ×3 (07:40→17:17)
[2023-01-31] MEDS: ONDANSETRON HCL 4 MG/2 ML VIAL IV PRN (07:43)
[2023-01-31 09:00] VITALS: BP 120/60; PULSE 78; RESP 18; TEMP 97.6; O2SAT 95
[2023-01-31] MEDS: PANTOPRAZOLE 40 MG/10 ML VIAL INJ IV SCH (09:55)
[2023-01-31] MEDS: ENOXAPARIN SOD 40 MG/0.4 ML SYRINGE SC SCH (09:55)
[2023-01-31 13:00] VITALS: BP 111/67; PULSE 78; RESP 22; TEMP 97.2; O2SAT 95
[2023-01-31 17:00] VITALS: BP 128/51; PULSE 83; RESP 18; TEMP 97.9; O2SAT 95
[2023-01-31 20:00] VITALS: PULSE 78; RESP 20; O2SAT 95
[2023-01-31 22:00] VITALS: BP 118/69; PULSE 75; RESP 18; TEMP 97.6; O2SAT 99
[2023-02-01] MEDS: PIPERACILLIN-TAZOB 3.375GM 100 ML IV SCH ×2 (00:30→07:48)
[2023-02-01] MEDS: D5W/SOD CHL 0.45% 1,000 ML IV SCH ×2 (02:00→12:25)
[2023-02-01] MEDS: HYDROcodone-ACET 5/325MG TAB PO PRN ×3 (03:42→15:02)
[2023-02-01 05:00] VITALS: BP 96/69; PULSE 115; RESP 20; TEMP 97.2; O2SAT 98
[2023-02-01 09:00] VITALS: BP 106/59; PULSE 80; RESP 18; TEMP 98.3; O2SAT 97
[2023-02-01] MEDS: PANTOPRAZOLE 40 MG/10 ML VIAL INJ IV SCH (09:45)
[2023-02-01] MEDS: ENOXAPARIN SOD 40 MG/0.4 ML SYRINGE SC SCH (09:45)
[2023-02-01 14:09] VITALS: BP 131/63; PULSE 79; RESP 19; TEMP 97.4; O2SAT 96
[2023-02-01 14:22] VITALS: TEMP 36.3
== END 2023-02-01 16:00 | disposition short-term general hospital (02) | DRG 720 ==
LOC: UNDOADMIN 10:24 → TELE-CENTR 10:24 → UNDOADMIN 10:25 → TELE-CENTR 10:25 → CENTRAL 10:54 → TELE-CENTR 11:21 → CENTRAL 11:21 → TELE-CENTR 11:28 → CENTRAL 01-26 01:55
PROVIDERS: ADMIT Nurse Practitioner Acute Care; ATTEND Nurse Practitioner Acute Care
PROC: 05HB33Z Insertion of Infusion Device into Right Basilic Vein, Percutaneous Approach (ICD-10-PCS; principal; 2023-01-31)
PROC: B54MZZA Ultrasonography of Right Upper Extremity Veins, Guidance (ICD-10-PCS; 2023-01-31)
DX: A41.9 Sepsis, unspecified organism (principal); N17.9 Acute kidney failure, unspecified; E66.9 Obesity, unspecified; I10 Essential (primary) hypertension; Z90.49 Acquired absence of other specified parts of digestive tract; Z68.42 Body mass index [BMI] 45.0-49.9, adult; K91.86 Retained cholelithiasis following cholecystectomy
CPT/HCPCS: 36415; 71045; 74176; 74181; 78226; 80048; 80053; 83605; 83690; 85025; 85379; 85610; 85730; 87040; 87081; 93005; 93970; 97110; 97116; 97163; 97530; C9113; G0378; J2405; J2543; J7042

== ENCOUNTER 2023-02-25 05:19 | Emergency (ER) | payer MEDICAID ==
[~2023-02-25] VITALS: Ht 160 cm; Wt 130.0 kg
[2023-02-25 06:00] LABS: Basophils # (auto) 0 10 ^3/uL (0-0.2); Basophils % (auto) 0.4 % (0.0-2.0); Eosinophils # (auto) 0.4 10 ^3/uL (0-0.8); Eosinophils % (auto) 3.6 % (0.0-7.0); Hematocrit 36.2 % (36.0-46.0); Hemoglobin 11.6 g/dL (12.2-16.2); Lymphocytes # (auto) 3.3 10 ^3/uL (0.4-5.4); Lymphocytes % (auto) 28.5 % (10.0-50.0); Mean Corpuscular Hemoglobin 28.1 pg (28.0-32.0); Mean Corpuscular Hgb Conc. 32.1 g/dL (32.0-36.0); Mean Corpuscular Volume 87.6 fL (80.0-100.0); Monocytes # (auto) 0.9 10 ^3/uL (0-1.3); Monocytes % (auto) 7.8 % (0.0-12.0); Neutrophils # (auto) 6.9 10 ^3/uL (1.6-8.6); Neutrophils % (auto) 59.7 % (37.0-80.0); Nucleated Red Blood Cells % 0.1 %; Red Blood Cells 4.14 10^6/uL (4.0-5.20); Red Cell Distribution Width 14.9 % (11.8-14.3); White Blood Cell 11.5 10^3/uL (4.4-10.8)
[2023-02-25 06:12] LABS: INR 1.01 (0.9-1.15); Prothrombin Time 10.6 sec (9.3-11.8)
[2023-02-25 06:17] LABS: Alanine Aminotransferase 12 U/L (7-40); Albumin 4.1 g/dL (3.2-4.8); Alkaline Phosphatase 135 U/L (46-116); Anion Gap 10 (5-15); Aspartate Aminotransferase 14 U/L (13-40); BUN/Creatinine Ratio 17.6 (10.0-20.0); Blood Urea Nitrogen 22 mg/dL (9-23); Carbon Dioxide 24 mmol/L (20-30); Chloride 106 mmol/L (98-107); Glucose 116 mg/dL (74-106); Potassium 3.5 mmol/L (3.5-5.1); Sodium 140 mmol/L (136-145)
[2023-02-25 06:18] LABS: Bilirubin, Total 0.9 mg/dL (0.2-1.0); Total Protein 6.8 g/dL (5.7-8.2)
[2023-02-25 06:29] VITALS: PULSE 93; RESP 23; O2SAT 98
[2023-02-25 06:36] LABS: Calcium 8.7 mg/dL (8.7-10.4)
[2023-02-25] MEDS ORDERED: methylPREDNISolone SOD SUCC 125 MG/2 ML VL IM ONE (07:15)
[2023-02-25] MEDS ORDERED: IPRATROPIUM BROM 0.5 MG/2.5ML INH SOL NEB ONE (07:30)
[2023-02-25] MEDS ORDERED: ALBUTEROL SULF 2.5 MG/0.5ML(0.5%) NEB SOLN NEB ONE (07:30)
[2023-02-25] MEDS ORDERED: PRED20TA2 PO (07:44)
[2023-02-25] MEDS ORDERED: LEVO500T91 PO (07:44)
[2023-02-25] MEDS ORDERED: methylPREDNISolone SOD SUCC 125 MG/2 ML VL IV ONE (07:45)
[2023-02-25 07:53] VITALS: PULSE 90; RESP 18; O2SAT 99
[2023-02-25 08:52] VITALS: BP 116/60; PULSE 116; RESP 18; TEMP 98.3; O2SAT 98
== END 2023-02-25 08:55 | disposition home or self-care (01) ==
LOC: ER 05:19 → EDBD 05:19 → ER 08:55
DX: J44.1 Chronic obstructive pulmonary disease with (acute) exacerbation (principal); I10 Essential (primary) hypertension; E11.9 Type 2 diabetes mellitus without complications; R07.89 Other chest pain
CPT/HCPCS: 36415; 71045; 80053; 83880; 84484; 85025; 85610; 85730; 93005; 94640; 96374; 99285; J2930; J7644

== ENCOUNTER 2024-02-28 02:58 | Emergency (ER) | payer MEDICAID ==
[~2024-02-28] VITALS: Ht 175.3 cm; Wt 113.6 kg
[~2024-02-28 02:58] MED LIST changes: +PRED20TA2 PO
--- NOTE | 2024-02-28 03:19 | ED.PDOC ---
SOB-HPI HPI Comments 58 year old female brought in by EMS presents to the ED with a chief complaint of shortness of breath onset 2 weeks. Patient states she has been experiencing shortness of breath, nausea, vomiting, cough for the past 2 weeks. Patient ran out of albuterol inhaler. PMHx of COPD, DM, HTN, asthma. No other symptoms or modifying factors present at this time. Chief Complaint: Shortness of Breath Time Seen by MD: 05:13 Primary Care Provider: UNKNOWN Reviewed notes: Medications, Allergies Information Source: Patient, Emergency Med Personnel Mode of Arrival: EMS Severity: Moderate Timing: Weeks Duration: Since onset Context: At Rest PE Risk Factors: None History of: Asthma, COPD Prehospital treatment: Treatment, Other (albuterol ) Modifying Factors: Nothing Associated Signs and Symptoms: Wheeze, Cough Radiation: No Radiation If cough with SOB: Productive Past Medical History PAST MEDICAL HISTORY: Asthma, COPD, DM, HTN Surgical History: Cholecystectomy 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: 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 Hx Family History Family History: Reviewed,noncontributory to illness Social History Smoker: Non-Smoker Alcohol: Denies ETOH Use Drugs: Denies Drug Use Lives In: Home Constitutional: denies: chills, diaphoresis, fatigue, fever, malaise, sweats, weakness, others EENTM: denies: blurred vision, double vision, ear bleeding, ear discharge, ear drainage, ear pain, ear ringing, eye pain, eye redness, hearing loss, mouth pain, mouth swelling, nasal discharge, nose bleeding, nose congestion, nose pain, photophobia, tearing, throat pain, throat swelling, voice changes, others Respiratory: reports: cough, shortness of breath; denies: hemoptysis, orthopnea, SOB at rest, SOB with excertion, stridor, wheezing, others Cardiovascular: denies: chest pain, dizzy spells, diaphoresis, Dyspnea on exertion, edema, irregular heart beat, left arm pain, lightheadedness, palpitations, PND, syncope, others Gastrointestinal: reports: nausea, vomiting; denies: abdomen distended, abdominal pain, blood streaked bowels, constipated, diarrhea, dysphagia, difficulty swallowing, hematemesis, melena, poor appetite, poor fluid intake, rectal bleeding, rectal pain, others Genitourinary: denies: abnormal vagina bleeding, burning, dyspareunia, dysuria, flank pain, frequency, hematuria, incontinence, pain, , vagina discharge, urgency, others Neurological: denies: dizziness, fainting, headache, left sided numbness, left sided weakness, numbness, paresthesia, pre-existing deficit, right sided n umbness, right sided weakness, seizure, speech problems, tingling, tremors, weakness, others Musculoskeletal: denies: back pain, gout, joint pain, joint swelling, muscle pain, muscle stiffness, neck pain, others Integumetry: denies: bruises, change in color, change in hair/nails, dryness, laceration, lesions, lumps, rash, wounds, others Allergic/Immunocompromised: denies: Difficulty Healing, Frequent Infections, Hives, Itching, others Hematologic/Lymphatic: denies: anemia, blood clots, easy bleeding, easy bruising, swollen glands, others Endocrine: denies: excessive hunger, excessive sweating, excessive thirst, excessive urination, flushing, intolerance to cold, intolerance to heat, unexplained weight gain, unexplained weight loss, others Psychiatric: denies: anxiety, bipolar disorder, depression, hopeless, panic disorder, schizophrenia, sleepless, suicidal, others All Other Systems: Reviewed and Negative Physical Exam General Appearance: No Apparent Distress, Normal HEENT: Normal ENT Inspection, Pharynx Normal, TMs Normal Neck: Full Range of Motion, Non-Tender, Normal, Normal Inspection Respiratory: Chest Non-Tender, Lungs Clear, No Accessory Muscle Use, No Respiratory Distress, Normal Breath Sounds Cardiovascular: No Edema, No JVD, No Murmur, No Gallop, Normal Peripheral Pulses, Regular Rate/Rhythm Breast Exam: Deferred Gastrointestinal: No Organomegaly, Non Tender, No Pulsatile Mass, Normal Bowel Sounds, Soft Genitalia: Deferred Pelvic: Deferred Rectal: Deferred Extremities: No calf tenderness, Normal capillary refill, Normal inspection, Normal range of motion, Non-tender, No pedal edema Musculoskeletal : Apperance: Normal 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 Was a procedure done?: No Differential Dx Differential Diagnosis: Asthma, Bronchitis, COPD, Pneumonia, Pneumothorax, Pulmonary Embolism, Respiratory Distress, URI, Other X-Ray, Labs, Meds, VS Vital Signs Date Time Temp Pulse Resp B/P (MAP) Pulse Ox O2 Delivery O2 Flow Rate FiO2 02/28/24 04:10 92 16 96 Nasal Cannula* 2 28 02/28/24 04:00 98.4 92 16 162/66 (98) 95 98.4 02/28/24 03:10 98.4 91 16 128/79 (95) 98 Lab Test 02/28/24 04:00 02/28/24 03:25 Range/Units Troponin I High Sensitivity 5 5 </=34 ng/L Influenza Type A Antigen Pending Influenza Type B Antigen Pending SARS-CoV-2 Antigen (Rapid) Pending White Blood Count 11.8 H 4.4-10.8 10^3/uL Red Blood Count 4.45 4.0-5.20 10^6/uL Hemoglobin 12.7 12.2-16.2 g/dL Hematocrit 39.3 36.0-46.0 % Mean Corpuscular Volume 88.2 80.0-100.0 fL Mean Corpuscular Hemoglobin 28.5 28.0-32.0 pg Mean Corpuscular Hemoglobin Concent 32.3 32.0-36.0 g/dL Red Cell Distribution Width 14.8 H 11.8-14.3 % Platelet Count 288 140-450 10^3/uL Mean Platelet Volume 8.1 6.9-10.8 fL Neutrophils (%) (Auto) 62.1 37.0-80.0 % Lymphocytes (%) (Auto) 28.7 10.0-50.0 % Monocytes (%) (Auto) 6.5 0.0-12.0 % Eosinophils (%) (Auto) 2.2 0.0-7.0 % Basophils (%) (Auto) 0.5 0.0-2.0 % Neutrophils # (Auto) 7.4 1.6-8.6 10 ^3/uL Lymphocytes # (Auto) 3.4 0.4-5.4 10 ^3/uL Monocytes # (Auto) 0.8 0-1.3 10 ^3/uL Eosinophils # (Auto) 0.3 0-0.8 10 ^3/uL Basophils # (Auto) 0.1 0-0.2 10 ^3/uL Nucleated Red Blood Cells 0.0 % Sodium Level 142 136-145 mmol/L Potassium Level 3.7 3.5-5.1 mmol/L Chloride Level 109 H 98-107 mmol/L Carbon Dioxide Level 25 20-31 mmol/L Anion Gap 8 5-15 Blood Urea Nitrogen 10 9-23 mg/dL Creatinine 0.84 0.550-1.02 mg/dL Glomerular Filtration Rate Calc 80 >90 mL/min BUN/Creatinine Ratio 11.9 10.0-20.0 Serum Glucose 123 H 74-106 mg/dL Calcium Level 10.1 8.7-10.4 mg/dL Total Bilirubin 0.6 0.2-1.0 mg/dL Aspartate Amino Transferase (AST) 11 L 13-40 U/L Alanine Aminotransferase (ALT) 10 7-40 U/L Alkaline Phosphatase 120 H 46-116 U/L B-Type Natriuretic Peptide 136.48 0-100 pg/mL Total Protein 7.3 5.7-8.2 g/dL Albumin 4.2 3.2-4.8 g/dL Current Medications Medications (Trade) Dose Ordered Sig/Martha Route Start Time Stop Time Status Last Admin Prednisone 40 mg ONCE ONCE PO 02/28/24 03:30 02/28/24 03:31 DC 02/28/24 03:52 Albuterol (Ventolin Medneb) 5 mg ONCE ONCE NEB 02/28/24 03:30 02/28/24 03:31 DC 02/28/24 03:37 Ipratropium [place] (Atrovent Medneb) 0.5 mg ONCE ONCE NEB 02/28/24 03:30 02/28/24 03:31 DC 02/28/24 03:37 [place] [id number] Ph: [phone] DIAGNOSTIC IMAGING Diagnostic Imaging Report : [id number] Signed PATIENT: PATRICIA HERMAN ACCT: [id number] UNIT: [id number] : 1965 LOC: ER ROOM / BED: / AGE / SEX: 58 / F ADM STATUS: REG ER SERVICE ORDERING PHYSICIAN: JANELLE BEJARANO MD PROCEDURE(s): CXRP - CHEST PORTABLE REASON: SOB ORDER NUMBER(s): [id number], ACCESSION NUMBER(s): [id number] CHEST RADIOGRAPH Indication: SOB Technique: Single frontal view of the chest was obtained Comparison: XY CHEST PORTABLE on DOS: 02/25/23 FINDINGS: Lines and Tubes: None Lungs: No focal consolidation. Pleura: No effusion. No pneumothorax. Cardiomediastinal contours: Unremarkable Bones: No acute osseous abnormality. IMPRESSION: 1. No acute cardiopulmonary disease. ATED BY: ELYSE GRIMALDO MD DICTATED DATE/TIME: 02/28/24436 SIGNED BY: ELYSE GRIMALDO MD SIGNED DATE/TIME: 02/28/24436 CC: Time of 1ST Reevaluation: 03:43 Reevaluation 1ST: Unchanged Time of 2ND Reevaluation: 04:26 Reevaluation 2ND: Improved Patient Education/Counseling: Diagnosis, Treatment, Prognosis Family Education/Counseling: No Family Present Departure 1 Departure Time of Disposition: 04:26 Impression: Primary Impression: COPD exacerbation Disposition: HOME / SELF CARE / HOMELESS Condition: Stable e-Prescriptions Azithromycin (Azithromycin) 500 Mg Tab 1 TAB PO DAILY for 5 Days, #5 TAB Prov: JANELLE BEJARANO MD 02/28/24 Prednisone (Prednisone) 20 Mg Tab 20 MG PO BID PRN for 5 Days, #10 TAB Prov: JANELLE BEJARANO MD 02/28/24 Albuterol Sulfate (Albuterol Sulfate Hfa) 108 Mcg/Act Aer 108 MCG IN Q6HP PRN for 9 Days, #1 AER 3 Refills Prov: JANELLE BEJARANO MD 02/28/24 Albuterol Sulfate (Albuterol Sulfate) 0.083 % Neb 1 VIAL NEB Q4HPRN PRN for 30 Days, #50 VIAL 3 Refills Prov: JANELLE BEJARANO MD 02/28/24 Discharged With: Self Critical Care Note Critical Care Time?: No Stability Stability form required: No Heart Score Heart Score: Heart Score Response (Comments) Value History Slightly Suspicious 0 EKG Normal 0 Age 45-64 1 Risk Factors 1 or 2 risk factors 1 Troponin Normal limit 0 Total 2 I personally scribed for JANELLE BEJARANO MD ([email or web address]) on 02/28/24 at 03:19. Electronically submitted by Kavitha Dorado ([email or web address]). I personally scribed for JANELLE BEJARANO MD ([email or web address]) on 02/28/24 at 05:02. Electronically submitted by Kavitha Dorado ([email or web address]). JANELLE BEJARANO MD Feb 28, 2024 03:19
[2024-02-28] MEDS: IPRATROPIUM BROM 0.5 MG/2.5ML INH SOL NEB ONE (03:37)
[2024-02-28] MEDS: ALBUTEROL SULF 2.5 MG/0.5ML(0.5%) NEB SOLN NEB ONE (03:37)
[2024-02-28 03:50] LABS: Basophils # (auto) 0.1 10 ^3/uL (0-0.2); Basophils % (auto) 0.5 % (0.0-2.0); Eosinophils # (auto) 0.3 10 ^3/uL (0-0.8); Eosinophils % (auto) 2.2 % (0.0-7.0); Hematocrit 39.3 % (36.0-46.0); Hemoglobin 12.7 g/dL (12.2-16.2); Lymphocytes # (auto) 3.4 10 ^3/uL (0.4-5.4); Lymphocytes % (auto) 28.7 % (10.0-50.0); Mean Corpuscular Hemoglobin 28.5 pg (28.0-32.0); Mean Corpuscular Hgb Conc. 32.3 g/dL (32.0-36.0); Mean Corpuscular Volume 88.2 fL (80.0-100.0); Monocytes # (auto) 0.8 10 ^3/uL (0-1.3); Monocytes % (auto) 6.5 % (0.0-12.0); Neutrophils # (auto) 7.4 10 ^3/uL (1.6-8.6); Neutrophils % (auto) 62.1 % (37.0-80.0); Platelet Count (auto) 288 10^3/uL (140-450); Red Blood Cells 4.45 10^6/uL (4.0-5.20); Red Cell Distribution Width 14.8 % (11.8-14.3); White Blood Cell 11.8 10^3/uL (4.4-10.8)
[2024-02-28 03:52] LABS: Alanine Aminotransferase 10 U/L (7-40); Albumin 4.2 g/dL (3.2-4.8); Anion Gap 8 (5-15); BUN/Creatinine Ratio 11.9 (10.0-20.0); Blood Urea Nitrogen 10 mg/dL (9-23); Calcium 10.1 mg/dL (8.7-10.4); Carbon Dioxide 25 mmol/L (20-31); Potassium 3.7 mmol/L (3.5-5.1); Sodium 142 mmol/L (136-145)
[2024-02-28] MEDS: predniSONE 20 MG TAB PO ONE (03:52)
[2024-02-28 03:53] LABS: Bilirubin, Total 0.6 mg/dL (0.2-1.0); Total Protein 7.3 g/dL (5.7-8.2)
[2024-02-28 03:57] LABS: Alkaline Phosphatase 120 U/L (46-116); Aspartate Aminotransferase 11 U/L (13-40); Chloride 109 mmol/L (98-107); Glucose 123 mg/dL (74-106)
[2024-02-28 04:00] VITALS: BP 162/66; TEMP 98.4
[2024-02-28 04:10] VITALS: PULSE 92; RESP 16; O2SAT 96
--- NOTE | 2024-02-28 04:39 | DVH ---
CHEST RADIOGRAPH Indication: SOB Technique: Single frontal view of the chest was obtained Comparison: XY CHEST PORTABLE on DOS: 02/25/23 FINDINGS: Lines and Tubes: None Lungs: No focal consolidation. Pleura: No effusion. No pneumothorax. Cardiomediastinal contours: Unremarkable Bones: No acute osseous abnormality. IMPRESSION: 1. No acute cardiopulmonary disease.
[2024-02-28] MEDS ORDERED: AZIT500T66 PO (05:04)
[2024-02-28] MEDS ORDERED: ALBU108A5 IN (05:04)
[2024-02-28] MEDS ORDERED: PRED20TA2 PO (05:04)
[2024-02-28] MEDS ORDERED: ALBU0.084 NEB (05:04)
--- NOTE | 2024-02-28 05:52 | ECG ---
[facility] Test Date: 2024-02-28 Test Time: 03:12:23 Pat Name: PATRICIA HERMAN Department: ED Room: Gender: F Primary Care Pediatrician: : 1965 Requested By: JANELLE BEJARANO Order Number: [id number] Reading MD: Franklin Abdalla Measurements Intervals [place] Rate: 87 P: 52 DE: 168 QRS: -28 QRSD: 91 T: 43 QT: 379 QTc: 456 Interpretive Statements Sinus rhythm Borderline left axis deviation Low voltage, precordial leads Electronically Signed On 02-28-2024 8:56:40 PST by Franklin Abdalla Please click the below link to view image of tracing.
[2024-02-28 06:17] LABS: COVID19 ANTIGEN SOFIA FIA NEGATIVE (NEGATIVE)
[2024-02-28 06:18] LABS: Rapid Influenza A Negative (Negative); Rapid Influenza B Negative (Negative)
== END 2024-02-28 05:21 | disposition home or self-care (01) ==
LOC: ER 02:58 → EDBD 02:58 → ER 05:21
DX: J44.1 Chronic obstructive pulmonary disease with (acute) exacerbation (principal); I10 Essential (primary) hypertension; E11.9 Type 2 diabetes mellitus without complications; Z90.49 Acquired absence of other specified parts of digestive tract; Z20.822 Contact with and (suspected) exposure to COVID-19
CPT/HCPCS: 36415; 71045; 80053; 83880; 84484; 85025; 87426; 87804; 93005; 94640; 99285; J7512

== ENCOUNTER 2024-04-27 12:02 | Inpatient (IN) | payer MEDICAID ==
[~2024-04-27] VITALS: Ht 160 cm; Wt 142.2 kg
[~2024-04-27 12:02] MED LIST changes: +ALBU0.084 NEB; +ALBU108A5 IN; +AZIT500T66 PO
--- NOTE | 2024-04-27 12:31 | ED.PDOC ---
History of Present Illness HPI Comments 58-year-old female brought in by EMS presents with a chief complaint of generalized weakness, SOB, edema, and mechanical fall. Per EMS, patient had a mechanical fall trying to get out of bed this morning around 0300 and was stuck on the floor. Patient states that she has been feeling weaker over the past cou ple weeks and couldn't get herself off the floor. Patient also reports that she has been feeling increasingly SOB and is speaking in 1/2 sentences. Patient has 3+ pitting edema and diffuse erythema to her bilateral lower extremities. Chief Complaint: Fall Injury Time Seen by MD: 12:12 Primary Care Provider: UNKNOWN Reviewed Notes: Medications, Allergies Allergies: Coded Allergies: Morphine (Verified Allergy, Unknown, 01/15/23) Home Meds Active Scripts Azithromycin (Azithromycin) 500 Mg Tab, 1 TAB PO DAILY for 5 Days, #5 TAB Prov:JANELLE BEJARANO MD 02/28/24 Prednisone (Prednisone) 20 Mg Tab, 20 MG PO BID for 5 Days, #10 TAB Prov:JANELLE BEJARANO MD 02/28/24 Albuterol Sulfate (Albuterol Sulfate Hfa) 108 Mcg/Act Aer, 108 MCG IN Q6HP PRN for 5 Days, #1 AER 3 Refills Prov:JANELLE BEJARANO MD 02/28/24 Albuterol Sulfate (Albuterol Sulfate) 0.083 % Neb, 1 VIAL NEB Q4HPRN PRN for 30 Days, #50 VIAL 5 Refills Prov:JANELLE BEJARANO MD 02/28/24 Azithromycin (Azithromycin) 500 Mg Tab, 1 TAB PO DAILY for 5 Days, #5 TAB Prov:JANELLE BEJARANO MD 02/28/24 Prednisone (Prednisone) 20 Mg Tab, 20 MG PO BID PRN for 5 Days, #10 TAB Prov:JANELLE BEJARANO MD 02/28/24 Albuterol Sulfate (Albuterol Sulfate Hfa) 108 Mcg/Act Aer, 108 MCG IN Q6HP PRN for 9 Days, #1 AER 3 Refills Prov:JANELLE BEJARANO MD 02/28/24 Albuterol Sulfate (Albuterol Sulfate) 0.083 % Neb, 1 VIAL NEB Q4HPRN PRN for 30 Days, #50 VIAL 3 Refills Prov:JANELLE BEJARANO MD 02/28/24 Levofloxacin Hemihydrate (LEVOFLOXACIN) 500 Mg Tab, 500 MG PO DAILY for 7 Days, #7 MG Prov:FRANCISCO RICKS MD 02/25/23 Prednisone (Prednisone) 20 Mg Tab, 20 MG PO DAILY for 7 Days, #7 MG Prov:FRANCISCO RICKS MD 02/25/23 Lisinopril (Lisinopril) 20 Mg Tab, 20 MG PO DAILY for 30 Days, #30 TAB Prov:DAVID VIRK NP 01/03/23 Levofloxacin Hemihydrate (LEVAQUIN 500 MG) 500 Mg Tab, 1 TAB PO DAILY for 5 Days, #5 TAB Prov:DAVID VIRK NP 01/03/23 Metronidazole (Flagyl) 500 Mg Tab, 1 TAB PO TID for 5 Days, #15 TAB Prov:DAVID VIRK NP 01/03/23 Hydrocodone-Acetaminophen (Hydrocodone Bitartrate/AC 5-325 mg) 1 Tab Tab, 1 TAB PO Q4HP PRN for 5 Days, #25 TAB Prov:DAVID VIRK NP 01/03/23 Reported Medications Lisinopril (Lisinopril) 20 Mg Tab, 20 MG PO DAILY for 30 Days, MG 12/28/22 Apixaban Base (ELIQUIS) 5 Mg Tab, 5 MG PO BID, TAB 12/28/22 Mode of Arrival: EMS Past Medical History PAST MEDICAL HISTORY: Asthma, COPD, Depression, DM, HTN Surgical History: 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 Family History Family History: Reviewed,noncontributory to illness Social History Smoker: Non-Smoker Alcohol: Denies ETOH Use Drugs: Denies Drug Use Lives In: Home Constitutional: reports: weakness; denies: chills, diaphoresis, fatigue, fever, malaise, sweats, others EENTM: denies: blurred vision, double vision, ear bleeding, ear discharge, ear drainage, ear pain, ear ringing, eye pain, eye redness, hearing loss, mouth pain, mouth swelling, nasal discharge, nose bleeding, nose congestion, nose pain, photophobia, tearing, throat pain, throat swelling, voice changes, others Respiratory: reports: SOB at rest, shortness of breath; denies: cough, hemoptysis, orthopnea, SOB with excertion, stridor, wheezing, others Cardiovascular: reports: edema; denies: chest pain, dizzy spells, diaphoresis, Dyspnea on exertion, irregular heart beat, left arm pain, lightheadedness, palpitations, PND, syncope, others Gastrointestinal: denies: abdomen distended, abdominal pain, blood streaked b owels, constipated, diarrhea, dysphagia, difficulty swallowing, hematemesis, melena, nausea, poor appetite, poor fluid intake, rectal bleeding, rectal pain, vomiting, others Genitourinary: denies: abnormal vagina bleeding, burning, dyspareunia, dysuria, flank pain, frequency, hematuria, incontinence, pain, , vagina discharge, urgency, others Neurological: denies: dizziness, fainting, headache, left sided numbness, left sided weakness, numbness, paresthesia, pre-existing deficit, right sided numbness, right sided weakness, seizure, speech problems, tingling, tremors, weakness, others Musculoskeletal: denies: back pain, gout, joint pain, joint swelling, muscle pain, muscle stiffness, neck pain, others Integumetry: denies: bruises, change in color, change in hair/nails, dryness, laceration, lesions, lumps, rash, wounds, others Allergic/Immunocompromised: denies: Difficulty Healing, Frequent Infections, Hives, Itching, others Hematologic/Lymphatic: denies: anemia, blood clots, easy bleeding, easy brui sing, swollen glands, others Endocrine: denies: excessive hunger, excessive sweating, excessive thirst, ex cessive urination, flushing, intolerance to cold, intolerance to heat, unexplained weight gain, unexplained weight loss, others Psychiatric: denies: anxiety, bipolar disorder, depression, hopeless, panic disorder, schizophrenia, sleepless, suicidal, others All Other Systems: Reviewed and Negative Physical Exam General Appearance: Mild Distress, Obese HEENT: Normal ENT Inspection, Pharynx Normal, TMs Normal Neck: Full Range of Motion, Non-Tender, Normal, Normal Inspection Respiratory: Other (SPEAKING IN 1/2 SENTENCES; DIFFICULTY BREATHING) Cardiovascular: No Edema, No JVD, No Murmur, No Gallop, Normal Peripheral Pulses, Regular Rate/Rhythm Breast Exam: Deferred Gastrointestinal: No Organomegaly, Non Tender, No Pulsatile Mass, Normal Bowel Sounds, Soft Genitalia: Deferred Pelvic: Deferred Rectal: Deferred Extremities: Pedal edema (3+), Swelling, Tender, Other (DIFFUSE ERYTHEMA) 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 Was a procedure done?: No Differential Dx Considerations may include: FLUID OVERLOAD, CELLULITIS, NECROTIZING FASCITIS, ELECTROLYTE DISTURBANCE, PNEUMONIA, DEHYDRATION, PLEURAL EFFUSION X-Ray, Labs, Meds, VS Vital Signs Date Time Temp Pulse Resp B/P (MAP) Pulse Ox O2 Delivery O2 Flow Rate FiO2 04/27/24 13:00 75 20 129/61 (83) 95 04/27/24 13:00 75 20 95 Room Air* 0 21 04/27/24 12:59 129/61 04/27/24 12:10 97.7 94 18 145/83 (103) 95 Lab Test 04/27/24 12:45 Range/Units White Blood Count 10.6 4.4-10.8 10^3/uL Red Blood Count 4.35 4.0-5.20 10^6/uL Hemoglobin 12.5 12.2-16.2 g/dL Hematocrit 38.4 36.0-46.0 % Mean Corpuscular Volume 88.2 80.0-100.0 fL Mean Corpuscular Hemoglobin 28.8 28.0-32.0 pg Mean Corpuscular Hemoglobin Concent 32.7 32.0-36.0 g/dL Red Cell Distribution Width 15.7 H 11.8-14.3 % Platelet Count 268 140-450 10^3/uL Mean Platelet Volume 8.0 6.9-10.8 fL Neutrophils (%) (Auto) 69.2 37.0-80.0 % Lymphocytes (%) (Auto) 19.3 10.0-50.0 % Monocytes (%) (Auto) 8.8 0.0-12.0 % Eosinophils (%) (Auto) 2.4 0.0-7.0 % Basophils (%) (Auto) 0.3 0.0-2.0 % Neutrophils # (Auto) 7.3 1.6-8.6 10 ^3/uL Lymphocytes # (Auto) 2.0 0.4-5.4 10 ^3/uL Monocytes # (Auto) 0.9 0-1.3 10 ^3/uL Eosinophils # (Auto) 0.2 0-0.8 10 ^3/uL Basophils # (Auto) 0 0-0.2 10 ^3/uL Nucleated Red Blood Cells 0.1 % Sodium Level 142 136-145 mmol/L Potassium Level 4.2 3.5-5.1 mmol/L Chloride Level 107 98-107 mmol/L Carbon Dioxide Level 24 20-31 mmol/L Anion Gap 11 5-15 Blood Urea Nitrogen 33 H 9-23 mg/dL Creatinine 1.36 H 0.550-1.02 mg/dL Glomerular Filtration Rate Calc 45 >90 mL/min BUN/Creatinine Ratio 24.3 H 10.0-20.0 Serum Glucose 105 74-106 mg/dL Calcium Level 9.6 8.7-10.4 mg/dL Creatine Kinase 219 H 34-145 U/L B-Type Natriuretic Peptide 29.80 0-100 pg/mL Current Medications Medications (Trade) Dose Ordered Sig/Martha Route Start Time Stop Time Status Last Admin Furosemide (Lasix Injection) 40 mg ONCE ONCE IV 04/27/24 12:30 04/27/24 12:31 DC 04/27/24 12:59 Clindamycin Phosphate 50 ml @ 50 mls/hr ONCE ONCE IV 04/27/24 12:30 04/27/24 13:29 DC 04/27/24 12:59 58-year-old female presents here after falling from her bed this morning. She declines hitting her head. She states she has been feeling weaker and weaker the last few days. On my evaluation she has 3+ pitting edema to bilateral lower extremities, of clinically appears to have breath and has evidence of cellulitis to bilateral lower extremities. Blood work has been done which demonstrates no leukocytosis CBC is otherwise unremarkable. Blood work does demonstrate mild acute kidney injury with a creatinine of 1.36. BNP is within normal limits. Chest x-ray has been done which does demonstrate pulmonary vascular congestion. UDS is positive for amphetamine. At this time patient has been started on clindamycin IV and I have given her Lasix 40 IV. At this time hospitalist team has been contacted for admission. Time of 1ST Reevaluation: 12:42 Reevaluation 1ST: Unchanged Patient Education/Counseling: Diagnosis, Treatment, Prognosis Family Education/Counseling: Diagnosis, Treatment, Prognosis Departure 1 Departure Time of Disposition: 13:00 Impression: Primary Impression: Cellulitis Qualified Codes: L03.119 - Cellulitis of unspecified part of limb Additional Impressions: Fluid overload Qualified Codes: E87.79 - Other fluid overload Generalized weakness Difficulty breathing Pulmonary vascular congestion Acute kidney injury Drug abuse Disposition: ADMITTED INPATIENT [facility]mit to[facility] Condition: Fair Critical Care Note Critical Care Time?: No Stability Stability form required: No I personally scribed for MINGO HUYNH MD ([email or web address]) on 04/27/24 at 12:30. Electronically submitted by Shahab Spencer ([email or web address]). MINGO HUYNH MD Apr 27, 2024 12:30
[2024-04-27] MEDS: CLINDAMYCIN 600MG IV 50 ML IV ONE (12:59)
[2024-04-27] MEDS: FUROSEMIDE 40 MG/4 ML VIAL IV ONE (12:59)
[2024-04-27 13:00] VITALS: PULSE 75; RESP 20; O2SAT 95
[2024-04-27 13:26] LABS: Chloride 107 mmol/L (98-107); Potassium 4.2 mmol/L (3.5-5.1); Sodium 142 mmol/L (136-145)
[2024-04-27 13:27] LABS: Anion Gap 11 (5-15); Carbon Dioxide 24 mmol/L (20-31)
[2024-04-27 13:28] LABS: Calcium 9.6 mg/dL (8.7-10.4)
[2024-04-27 13:32] LABS: BUN/Creatinine Ratio 24.3 (10.0-20.0); Glucose 105 mg/dL (74-106)
[2024-04-27 13:36] LABS: Basophils # (auto) 0 10 ^3/uL (0-0.2); Basophils % (auto) 0.3 % (0.0-2.0); Eosinophils # (auto) 0.2 10 ^3/uL (0-0.8); Eosinophils % (auto) 2.4 % (0.0-7.0); Hematocrit 38.4 % (36.0-46.0); Hemoglobin 12.5 g/dL (12.2-16.2); Lymphocytes % (auto) 19.3 % (10.0-50.0); Mean Corpuscular Hemoglobin 28.8 pg (28.0-32.0); Mean Corpuscular Hgb Conc. 32.7 g/dL (32.0-36.0); Mean Corpuscular Volume 88.2 fL (80.0-100.0); Monocytes # (auto) 0.9 10 ^3/uL (0-1.3); Monocytes % (auto) 8.8 % (0.0-12.0); Neutrophils # (auto) 7.3 10 ^3/uL (1.6-8.6); Neutrophils % (auto) 69.2 % (37.0-80.0); Nucleated Red Blood Cells % 0.1 %; Platelet Count (auto) 268 10^3/uL (140-450); Red Blood Cells 4.35 10^6/uL (4.0-5.20); Red Cell Distribution Width 15.7 % (11.8-14.3); White Blood Cell 10.6 10^3/uL (4.4-10.8)
[2024-04-27 13:40] LABS: Blood Urea Nitrogen 33 mg/dL (9-23)
[2024-04-27] MEDS ORDERED: MORPHINE SULFATE INJ 2 MG/ml SYRG IV PRN ×2 (14:45)
[2024-04-27] MEDS ORDERED: ONDANSETRON HCL 4 MG/2 ML VIAL IV PRN (14:45)
[2024-04-27] MEDS ORDERED: NITROGLYCERIN 0.4 MG SL TAB SL PRN (14:45)
--- NOTE | 2024-04-27 14:56 | DVHHP2 ---
History of Present Illness Reason for Visit: General weakness, mechanical fall History of Present Illness The patient was a 58-year-old female presenting to the emergency room with reports of generalized weakness, mechanical fall, as well as severe depression. Patient was states that she has been having trouble getting out of bed over the past one week secondary to being severely depressed. She states that she fell out of her bed approximately 2:00 a.m., was not found for approximately 3-4 hours later by her boyfriend. Patient denies having any pain to any joints or extremities as well as exhibiting no limited range of movement. Patient was report having worsening swelling and redness to her lower extremities as well as fluid in her lungs. Significant history of the patient includes hypertension, and cholecystectomy. Cardiovascular: HTN Past Surgical History: Cholecystectomy, Hysterectomy Family History: None Smoke: Quit (Patient was states she quit smoking three years ago) ALCOHOL: occassional Drugs: None Lives: with Family Review of Systems Constitutional: No: Fever, Chills, Sweats, Weakness, Malaise, Other Eyes: No: Pain, Vision change, Conjunctivae inflammation, Eyelid inflammation, Other, Redness ENT: No: Ear pain, Ear discharge, Nose pain, Nose discharge, Nose congestion, Mouth pain, Mouth swelling, Throat pain, Throat swelling, Other Respiratory: No: Cough, Dry, Shortness of breath, SOB with excertion, Wheezing, Hemoptysis, Pleuritic Pain, Sputum, Wheezing, Other Cardiovascular: Edema (Bilateral lower extremity swelling); No: Chest Pain, Palpitations, Orthopnea, Paroxysmal Noc. Dyspnea, Lt Headedness, Other Gastrointestinal: No: Nausea, Vomiting, Abdominal Pain, Diarrhea, Constipation, Melena, Hematochezia, Other Genitourinary: No Dysuria, No Frequency, No Incontinence, No Hematuria, No Retention, No Other Musculoskeletal: leg pain Skin: No: Rash, Lesions, Jaundice, Bruising, Other Neurological: No: Weakness, Numbness, Incoordination, Change in speech, Confusion, Seizures, Other Allergies: Coded Allergies: Morphine (Verified Allergy, Unknown, 01/15/23) Medications Current Medications Medications Dose Ordered Sig/Martha Route Start Time Stop Time Status Last Admin Dose Admin Nitroglycerin 0.4 mg Q5MINP PRN SL 04/27/24 14:45 UNV Morphine Sulfate 2 mg Q30M PRN IV 04/27/24 14:45 UNV Ceftriaxone Sodium 50 ml @ 100 mls/hr DAILY@09 IV 04/28/24 09:00 UNV Clindamycin HCl 300 mg Q8HR PO 04/27/24 22:00 UNV Saccharomyces Boulardii 250 mg DAILY PO 04/28/24 10:00 UNV Exam Vital Signs Vital Signs Date Time Temp Pulse Resp B/P (MAP) Pulse Ox O2 Delivery O2 Flow Rate FiO2 04/27/24 13:00 75 20 129/61 (83) 95 04/27/24 13:00 Room Air* 0 21 04/27/24 12:10 97.7 General Appearance: Alert, Oriented X3, Cooperative, mild distress HEENT: Atraumatic, PERRLA Respiratory: Clear to auscultation Cardiovascular: Normal S1, Normal S2 Abdominal: Normal bowel sounds, Soft, No tenderness Extremities: No clubbing, No cyanosis, Normal pulses, No tenderness/swelling Skin: No breakdown, No significant lesion (Redness to lower extremities.) Neuro: Normal gait, Normal speech Psych/Mental Status: Mental status NL, Mood NL Labs/Xrays Labs Test 04/27/24 14:16 04/27/24 12:45 Range/Units White Blood Count 10.6 4.4-10.8 10^3/uL Red Blood Count 4.35 4.0-5.20 10^6/uL Hemoglobin 12.5 12.2-16.2 g/dL Hematocrit 38.4 36.0-46.0 % Mean Corpuscular Volume 88.2 80.0-100.0 fL Mean Corpuscular Hemoglobin 28.8 28.0-32.0 pg Mean Corpuscular Hemoglobin Concent 32.7 32.0-36.0 g/dL Red Cell Distribution Width 15.7 H 11.8-14.3 % Platelet Count 268 140-450 10^3/uL Mean Platelet Volume 8.0 6.9-10.8 fL Neutrophils (%) (Auto) 69.2 37.0-80.0 % Lymphocytes (%) (Auto) 19.3 10.0-50.0 % Monocytes (%) (Auto) 8.8 0.0-12.0 % Eosinophils (%) (Auto) 2.4 0.0-7.0 % Basophils (%) (Auto) 0.3 0.0-2.0 % Neutrophils # (Auto) 7.3 1.6-8.6 10 ^3/uL Lymphocytes # (Auto) 2.0 0.4-5.4 10 ^3/uL Monocytes # (Auto) 0.9 0-1.3 10 ^3/uL Eosinophils # (Auto) 0.2 0-0.8 10 ^3/uL Basophils # (Auto) 0 0-0.2 10 ^3/uL Nucleated Red Blood Cells 0.1 % Sodium Level 142 136-145 mmol/L Potassium Level 4.2 3.5-5.1 mmol/L Chloride Level 107 98-107 mmol/L Carbon Dioxide Level 24 20-31 mmol/L Anion Gap 11 5-15 Blood Urea Nitrogen 33 H 9-23 mg/dL Creatinine 1.36 H 0.550-1.02 mg/dL Glomerular Filtration Rate Calc 45 >90 mL/min BUN/Creatinine Ratio 24.3 H 10.0-20.0 Serum Glucose 105 74-106 mg/dL Calcium Level 9.6 8.7-10.4 mg/dL Creatine Kinase 219 H 34-145 U/L B-Type Natriuretic Peptide 29.80 0-100 pg/mL Assessment/Plan Assessment/Plan Impression: -bilateral lower extremity cellulitis -rule out acute decompensated diastolic heart failure -rule out DVT -obesity -? Acute kidney injury versus chronic kidney disease -? Major depressive disorder -history of alcoholism -rhabdomyolysis Plan: -admit to telemetry unit -psychiatry consultation -IV antibiotic therapy: Clindamycin, Rocephin -DVT study of lower extremities -pain management -echocardiogram -repeat labs in a.m. Total time spent with patient discussing and formulating plan of care: 35 minutes. This medical document was created using an electronic medical record system with [employer] dictation system. Although this document has been carefully reviewed, there may still be some phonetic and typographical errors. These ar eas are purely typographical due to imperfections of the software programs, and do not reflect any compromise in the patient's medical care. Plan discussed with: Patient, Other (RN) My Orders Orders - DAVID VIRK NP Procedure Category Date Status Time D-Dimer LAB 04/27/24 Logged 14:06 Admit ADMIT 04/27/24 Transmitted 14:41 Nitroglycerin PHA 04/27/24 Transmitted Sublingual (Ntrostat 14:45 Morphine Sulfate PHA 04/27/24 Transmitted Injection 14:45 Stat Ekg For Chest ANNI 04/27/24 In Process Pain 14:41 Notify Of Changes ANNI 04/27/24 In Process From Base 14:41 Imaging Technician For ANNI 04/27/24 In Process 24 Hours 14:41 Emergency Dysrhythmia ANNI 04/27/24 In Process Protocol 14:41 Rhythm Strips Once ANNI 04/27/24 In Process Every Shift 14:41 Oxygen By Nasal RT 04/27/24 Transmitted Cannula 14:41 Ceftriaxone Ivpb PHA 04/28/24 Transmitted Rocephin 09:00 Clindamycin Capsule PHA 04/27/24 Transmitted (Cleocin Capsule) 22:00 Florastor (S. PHA 04/28/24 Transmitted Boulardii) (Florastor) 10:00 Echo 2d Mode Cardiac US 04/27/24 Transmitted DOP 14:41 Bilat Lower Dvt US 04/27/24 Transmitted 14:41 *Tele Psych Consult CONS 04/27/24 Transmitted 14:41 Furosemide Tablet PHA 04/28/24 Transmitted (Lasix Tablet) 10:00 Morphine Sulfate PHA 04/27/24 Transmitted Injection 14:45 Hydrocodone-Acet PHA 04/27/24 Transmitted 5/325mg Tab ([place] 14:45 Acetaminophen Tablet PHA 04/27/24 Transmitted (Tylenol Tablet) 14:45 Ondansetron Hcl PHA 04/27/24 Transmitted (Zofran) 14:45 Cardiac DIET 04/27/24 Transmitted Diet-2gna,Lofat,Lochol Dinner Basic Metabolic Panel LAB 04/28/24 Verified 04:00 Complete Blood Count LAB 04/28/24 Verified 04:00 Date of Service: Apr 27, 2024 Billing Provider: DAVID VIRK NP Common Visit Codes: [id number] INP/OBS CARE (HIGH) DAVID VIRK NP Apr 27, 2024 14:56
--- NOTE | 2024-04-27 15:59 | DVH ---
Bilateral lower extremity venous duplex Clinical History: Rule out DVT Comparison: US BILAT LOWER DVT on DOS: 01/25/23, US BILAT LOWER DVT on DOS: 12/28/22 Technique: Duplex Doppler evaluation of the deep venous systems of both lower extremities from the common femora l veins to the popliteal veins including color Doppler and spectral/pulsed waveform analysis was perf ormed. Findings: RIGHT SIDE: The common femoral vein demonstrates appropriate compressibility and waveform variability. There is compressibility/patency of the great saphenous vein at the proximal thigh. The femoral vein demonstrates appropriate compressibility and waveform variability. The deep femoral vein demonstrates appropriate compressibility and waveform variability. The popliteal vein demonstrates appropriate compressibility and waveform variability. There is normal compressibility at the tibioperoneal trunk. LEFT SIDE: The common femoral vein demonstrates appropriate compressibility and waveform variability. There is compressibility/patency of the great saphenous vein at the proximal thigh. The femoral vein demonstrates appropriate compressibility and waveform variability. The deep femoral vein demonstrates appropriate compressibility and waveform variability. The popliteal vein demonstrates appropriate compressibility and waveform variability. There is normal compressibility at the tibioperoneal trunk. Impression: No right or left femoropopliteal venous thrombosis. Severe bilateral lower extremity edema. Suboptimal visualization of portions of the bilateral femoral vein.
[2024-04-27 16:36] LABS: Amphetamine Screen, Urine Pos (NEGATIVE); Barbiturate Scree,Urine Neg (NEGATIVE); Benzodiazephine Screen, Urine Neg (NEGATIVE); Cannabinoid Screen, Urine Neg (NEGATIVE); Cocaine Screen, Urine Neg (NEGATIVE); Opiate Scree,Urine Neg (NEGATIVE); Phencyclidine Screen, Urine Neg (NEGATIVE)
--- NOTE | 2024-04-27 16:58 | DVH ---
CHEST RADIOGRAPH Indication: sob Technique: Single frontal view of the chest was obtained COMPARISON: XY CHEST PORTABLE on DOS: 02/28/24, XY CHEST PORTABLE on DOS: 02/25/23, XY CHEST PORTABLE o n DOS: 01/25/23, XY CHEST XRAY 1 VIEW on DOS: 01/01/23 FINDINGS: Lines and Tubes: None Lungs: Mild congestion Pleura: No effusion. No pneumothorax. Cardiomediastinal contours: Unremarkable Bones: Unremarkable IMPRESSION: Mild pulmonary vascular congestion
[2024-04-27] MEDS: CLINDAMYCIN HCL 150 MG CAP PO SCH (21:38)
[2024-04-27] MEDS: HYDROcodone-ACET 5/325MG TAB PO PRN (21:40)
[2024-04-27 21:41] VITALS: BP 155/88; PULSE 94; RESP 20; TEMP 98.2; O2SAT 96
[2024-04-27 21:45] VITALS: PULSE 99; RESP 20; O2SAT 96
[2024-04-28] VITALS (8 sets, daily range): BP systolic 103–157; BP diastolic 55–91; PULSE 73–92; RESP 16–19; TEMP 97.5–98.3; O2SAT 93–98
[2024-04-28 06:23] LABS: Chloride 107 mmol/L (98-107); Potassium 3.7 mmol/L (3.5-5.1); Sodium 141 mmol/L (136-145)
[2024-04-28 06:24] LABS: Anion Gap 9 (5-15); Carbon Dioxide 25 mmol/L (20-31)
[2024-04-28 06:25] LABS: Calcium 9.1 mg/dL (8.7-10.4)
[2024-04-28 06:28] LABS: Basophils # (auto) 0 10 ^3/uL (0-0.2); Basophils % (auto) 0.2 % (0.0-2.0); Eosinophils # (auto) 0.4 10 ^3/uL (0-0.8); Eosinophils % (auto) 5.9 % (0.0-7.0); Hematocrit 37.5 % (36.0-46.0); Lymphocytes # (auto) 2.1 10 ^3/uL (0.4-5.4); Lymphocytes % (auto) 28.8 % (10.0-50.0); Mean Corpuscular Hemoglobin 28.5 pg (28.0-32.0); Mean Corpuscular Hgb Conc. 32.1 g/dL (32.0-36.0); Mean Corpuscular Volume 88.7 fL (80.0-100.0); Monocytes # (auto) 0.7 10 ^3/uL (0-1.3); Monocytes % (auto) 9.5 % (0.0-12.0); Neutrophils % (auto) 55.6 % (37.0-80.0); Nucleated Red Blood Cells % 0.1 %; Platelet Count (auto) 230 10^3/uL (140-450); Red Blood Cells 4.23 10^6/uL (4.0-5.20); Red Cell Distribution Width 16.1 % (11.8-14.3); White Blood Cell 7.2 10^3/uL (4.4-10.8)
[2024-04-28 06:29] LABS: BUN/Creatinine Ratio 19.8 (10.0-20.0); Glucose 95 mg/dL (74-106)
[2024-04-28 06:33] LABS: Blood Urea Nitrogen 25 mg/dL (9-23)
[2024-04-28] MEDS: ACETAMINOPHEN 500 MG TAB or CAP PO PRN (08:38)
[2024-04-28] MEDS: cefTRIAXone 1GM/50ML D5W 50 ML IV SCH (08:39)
[2024-04-28] MEDS: FLORASTOR (S. BOULARDII) 250 MG CAP PO SCH (08:43)
[2024-04-28] MEDS: FUROSEMIDE 20 MG TAB PO SCH (08:44)
--- NOTE | 2024-04-28 11:34 | DVHSR ---
APPROVED REPORT EXAM: Two-dimensional and M-mode echocardiogram with Doppler and color Doppler. Blood Pressure: 112/61 mmHg INDICATION Decompensated HF RISK FACTORS Obesity: Height: 5'3", Weight: 307 DIMENSIONS LVDd4.0 (3.8-5.7cm)LA (2D)3.0 (1.9-4.0cm)Aortic Root3.3 (2.0-3.7cm) LVDs2.8 (2.5-4.0cm)LA (MM) (1.9-4.0cm)Aortic Cusp Exc1.9 (1.5-2.0cm) EF (%) 60.0 (55-70%)Rt. Atrium3.0 (1.9-4.0cm)Asc. Aorta cm IVSd1.1 (0.7-1.1cm)RV (D) (1.8-2.4cm) PWd1.2 (0.7-1.1cm) Mitral Valve MitralMitral Stenosis E wave1.13m/sMV Mean GR.mmHg A wave1.35m/sMV Peak GR.mmHg E/A ratio0.82D MVAcm2 DECEL [id number] 1/2 Timems Aortic Valve Aortic ValveAortic Stenosis V11.42m/Kajal Mean GR.5mmHg V21.58m/Kajal Peak GR.10mmHg LVOT Diameter1.9 (1.8-2.4cm)Doppler AVA2.55cm2 Pulmonic Valve V21.12m/s Other Information Quality : LimitedRhythm : Technically limited study due to body habitus. Conclusion limited study lvef 60% by visual estimate borderline LVH RV not well seen normal atria no severe valve abnormalities noted, valves not seen well
--- NOTE | 2024-04-28 15:45 | DVHPN2 ---
Subjective Patient denies any symptoms. Reviewed: Care Plan, H&P, Labs, Medications Changes from previous H/P or p: No Changes General: Per HPI Eyes: No Pain, No Vision change, No Conjunctivae inflammation, No Eyelid inflammation, No Other, No Redness ENT: No Ear pain, No Ear discharge, No Nose pain, No Nose discharge, No Nose congestion, No Mouth pain, No Mouth swelling, No Throat pain, No Throat swelling, No Other Cardiovascular: No Chest Pain, No Palpitations, No Orthopnea, No Paroxysmal Noc. Dyspnea; Edema (Bilateral lower extremity swelling); No Lt Headedness, No Other Respiratory: No Cough, No Dry, No Shortness of breath, No SOB with excertion, No Wheezing, No Hemoptysis, No Pleuritic Pain, No Sputum, No Other Gastrointestinal: No Nausea, No Vomiting, No Abdominal Pain, No Diarrhea, No Constipation, No Melena, No Hematochezia, No Other Genitourinary: No Dysuria, No Frequency, No Incontinence, No Hematuria, No Retention, No Other Musculoskeletal: leg pain Skin: No Rash, No Lesions, No Jaundice, No Bruising, No Other Objective Vitals Vital Signs Date Time Temp Pulse Resp B/P (MAP) Pulse Ox O2 Delivery O2 Flow Rate FiO2 04/28/24 13:00 98.0 91 18 103/55 (71) 95 98.0 04/28/24 08:00 Room Air* 0 21 Intake/Output Intake and Output 04/28/24 07:00 Intake Total 600 ml Output Total 1200 ml Balance -600 ml Intake Oral 550 ml IV Total 50 ml Output Urine Total 1200 ml General Appearance: Alert, Oriented X3, Cooperative, No acute distress, Other (Obesity) HEENT: Atraumatic, PERRLA Lungs: Clear to auscultation, Normal air movement Cardiovascular: Normal S1, Normal S2 Abdomen: Normal bowel sounds, Soft, No tenderness, No hepatospenomegaly, No masses Musculoskeletal: Normal sensory function, Normal motor function Extremities: Other (Bilateral lower extremity swelling and redness) Neuro: Normal gait, Normal speech Psych/Mental Status: Mental status NL, Mood NL Medications Current Medications Medications Dose Ordered Sig/Martha Route Start Time Stop Time Status Last Admin Dose Admin Nitroglycerin 0.4 mg Q5MINP PRN SL 04/27/24 14:45 Ceftriaxone Sodium 50 ml @ 100 mls/hr DAILY@09 IV 04/28/24 09:00 04/28/24 08:39 100 MLS/HR Clindamycin HCl 300 mg Q8HR PO 04/27/24 22:00 04/28/24 13:52 300 MG Saccharomyces Boulardii 250 mg DAILY PO 04/28/24 10:00 04/28/24 08:43 250 MG Furosemide 20 mg DAILY PO 04/28/24 10:00 04/28/24 08:44 20 MG Acetaminophen/ Hydrocodone Bitart 1 tab Q6HPRN PRN PO 04/27/24 14:45 04/28/24 06:10 1 TAB Acetaminophen 500 mg Q8HP PRN PO 04/27/24 14:45 04/28/24 08:38 500 MG Ondansetron HCl 4 mg Q6HP PRN IV 04/27/24 14:45 Laboratory Results Laboratory Tests 04/28/24 04:57 Chemistry Test 04/28/24 04:57 Calcium Level 9.1 mg/dL (8.7-10.4) Microbiology Microbiology Date/Time Source Procedure Growth Status 04/27/24 12:49 Blood Blood Culture - Preliminary NO GROWTH AFTER 24 HOURS OF INCUBATION. Resulted Labs and/or images reviewed: Labs reviewed by me, Image(s) reviewed by me Assessment/Plan Assessment/Plan Impression: -bilateral lower extremity cellulitis -rule out acute decompensated diastolic heart failure -rule out DVT -obesity -? Acute kidney injury versus chronic kidney disease -? Major depressive disorder -history of alcoholism -rhabdomyolysis -amphetamine abuse Plan: -events: No events overnight. Patient was positive for amphetamines -continue IV diuresis with potassium replacement -IV antibiotic therapy: Clindamycin, Rocephin -DVT study of lower extremities : Negative -pain management -echocardiogram, normal EF Total time spent with patient discussing and formulating plan of care: 35 minutes. This medical document was created using an electronic medical record system with [employer] dictation system. Although this document has been carefully reviewed, there may still be some phonetic and typographical errors. These areas are purely typographical due to imperfections of the software programs, and do not reflect any compromise in the patient's medical care. Plan discussed with: Patient, Other (RN) My Orders Orders - DAVID VIRK NP Procedure Category Date Status Time Cssrs Frequent ANNI 04/27/24 In Process Screener (Daily 22:49 Patient & Room / ANNI 04/27/24 In Process Environmental 22:49 Date of Service: Apr 28, 2024 Billing Provider: DAVID VIRK NP Common Visit Codes: [id number] INP/OBS CARE(HIGH) DAVID VIRK NP Apr 28, 2024 15:45
--- NOTE | 2024-04-28 19:21 | DVHINCON2 ---
Date of Service if different f: Apr 28, 2024 Time of Service: 18:59 Consultation ([facility]) Consulting Physician: CHANTEL GILES MD Labs Laboratory Tests Test 04/27/24 12:45 04/27/24 14:55 04/27/24 16:10 04/28/24 04:57 Creatine Kinase 219 U/L (34-145) B-Type Natriuretic Peptide 29.80 pg/mL (0-100) D-Dimer, Quantitative 1.74 mg/L FEU (0.0-0.49) Urine Opiates Screen Neg (NEGATIVE) Urine Fentanyl Screen Neg (NEGATIVE) Urine Barbiturates Screen Neg (NEGATIVE) Urine Phencyclidine Screen Neg (NEGATIVE) Urine Amphetamines Screen Pos (NEGATIVE) Urine Benzodiazepines Screen Neg (NEGATIVE) Urine Cocaine Screen Neg (NEGATIVE) Urine Cannabinoids Screen Neg (NEGATIVE) White Blood Count 7.2 10^3/uL (4.4-10.8) Red Blood Count 4.23 10^6/uL (4.0-5.20) Hemoglobin 12.0 g/dL (12.2-16.2) Hematocrit 37.5 % (36.0-46.0) Mean Corpuscular Volume 88.7 fL (80.0-100.0) Mean Corpuscular Hemoglobin 28.5 pg (28.0-32.0) Mean Corpuscular Hemoglobin Concent 32.1 g/dL (32.0-36.0) Red Cell Distribution Width 16.1 % (11.8-14.3) Platelet Count 230 10^3/uL (140-450) Mean Platelet Volume 8.6 fL (6.9-10.8) Neutrophils (%) (Auto) 55.6 % (37.0-80.0) Lymphocytes (%) (Auto) 28.8 % (10.0-50.0) Monocytes (%) (Auto) 9.5 % (0.0-12.0) Eosinophils (%) (Auto) 5.9 % (0.0-7.0) Basophils (%) (Auto) 0.2 % (0.0-2.0) Neutrophils # (Auto) 4.0 10 ^3/uL (1.6-8.6) Lymphocytes # (Auto) 2.1 10 ^3/uL (0.4-5.4) Monocytes # (Auto) 0.7 10 ^3/uL (0-1.3) Eosinophils # (Auto) 0.4 10 ^3/uL (0-0.8) Basophils # (Auto) 0 10 ^3/uL (0-0.2) Nucleated Red Blood Cells 0.1 % Sodium Level 141 mmol/L (136-145) Potassium Level 3.7 mmol/L (3.5-5.1) Chloride Level 107 mmol/L (98-107) Carbon Dioxide Level 25 mmol/L (20-31) Anion Gap 9 (5-15) Blood Urea Nitrogen 25 mg/dL (9-23) Creatinine 1.26 mg/dL (0.550-1.02) Glomerular Filtration Rate Calc 49 mL/min (>90) BUN/Creatinine Ratio 19.8 (10.0-20.0) Serum Glucose 95 mg/dL (74-106) Calcium Level 9.1 mg/dL (8.7-10.4) Microbiology Date/Time Source Procedure Growth Status 04/27/24 12:49 Blood Blood Culture - Preliminary NO GROWTH AFTER 24 HOURS OF INCUBATION. Resulted Appearance: Stated age Psychomotor activity: WNL Behavioral: Cooperative Eye contact: Appropriate Affect: Appropriate Mood: Depressed Thought processes: Linear/Goal-directed Thought content: WNL Suicidal ideations: Absent Homicidal ideations: Absent Orientation: Person, Place, Time, Situation Memory intact: Recent Intellect: Average Abstractability: WNL Concentration: Adequate Attention: Adequate Judgement: WNL Insight: Good Vitals Vital Signs Date Time Temp Pulse Resp B/P (MAP) Pulse Ox O2 Delivery O2 Flow Rate FiO2 04/28/24 16:33 97.9 92 18 157/91 (113) 97 97.9 04/28/24 08:00 Room Air* 0 21 Current medications Current Medications Medications Dose Ordered Sig/Martha Route Start Time Stop Time Status Last Admin Dose Admin Nitroglycerin 0.4 mg Q5MINP PRN SL 04/27/24 14:45 Ceftriaxone Sodium 50 ml @ 100 mls/hr DAILY@09 IV 04/28/24 09:00 04/28/24 08:39 100 MLS/HR Clindamycin HCl 300 mg Q8HR PO 04/27/24 22:00 04/28/24 13:52 300 MG Saccharomyces Boulardii 250 mg DAILY PO 3/3/25 10:00 04/28/24 08:43 250 MG Furosemide 20 mg DAILY PO 04/28/24 10:00 04/28/24 08:44 20 MG Acetaminophen/ Hydrocodone Bitart 1 tab Q6HPRN PRN PO 04/27/24 14:45 04/28/24 06:10 1 TAB Acetaminophen 500 mg Q8HP PRN PO 04/27/24 14:45 04/28/24 08:38 500 MG Ondansetron HCl 4 mg Q6HP PRN IV 04/27/24 14:45 Potassium Bicarbonate 25 meq DAILY PO 04/29/24 10:00 Treatment plan discussed: With staff Medication adjusted: Yes Labs ordered: No Psychotherapy provided: Yes Type: Voluntary History of Present Illness Reason for Consult : psychiatric evaluation PER H&P: The patient was a 58-year-old female presenting to the emergency room with reports of generalized weakness, mechanical fall, as well as severe dep ression. Patient was states that she has been having trouble getting out of bed over the past one week secondary to being severely depressed. She states that she fell out of her bed approximately 2:00 a.m., was not found for approximately 3-4 hours later by her boyfriend. Patient denies having any pain to any joints or extremities as well as exhibiting no limited range of movement. Patient was report having worsening swelling and redness to her lower extremities as well as fluid in her lungs. Significant history of the patient includes hypertension, and cholecystectomy. PSYCHIATRIST HPI: The patient was seen and evaluated at [facility] via telepsychiatry platform. 58 yr old female admitted 04/27 for weakness an d severe depression. She reported she has had depression for a long time. She wants to stay in bed and sleep for a few days sleep. Sometimes she has no appetite. She has low motivation, low energy. Sometimes she wishes she would . has a hard time having fun. Feels guilty about not doing enough. She denied having SI/HI/AVH. Past Psychiatric History : No hospitalization. One suicide attempts by overdose 20 years ago. worked with therapist about 4-5 years ago. Current medications: blood pressure medications Past Medical History : hypertension, asthma, COPD, sciatica, difficulty walking Substance Use: Quit tobacco three years ago. Alcohol-occasional use. Had used meth in the past, but denied using since going through rehab five years ago. Denied other drug use. Social History : Lives in [place] with boyfriend. for 20+ years but at the end and in 2019. 3 adult children who also live on her property. DIAGNOSIS: UNSPECIFIED DEPRESSIVE DISORDER Formulation: This 58 yr old female appears to suffer from depression which has low energy and motivation and anhedonia. She may benefit from starting Wellbutrin. She does not warrant psychiatric hospitalization at his time. Plan: 1. The patient is a low risk for self harm and may be managed as an outpatient. 2. Legal-voluntary. 3. Medications: Recommend starting Wellbutrin XL 150mg qam. I recommend she receive 150mg for three days, then increase to 300mg qam. Once discharged I recommend prescribing a 30 day supply with two refills of wellbutrin XL 300mg qam. 4. Follow up with outpatient mental health for medication management and therapy. 5. Please recontact psychiatry for further follow up or reevaluation. Assessment/Diagnosis/Plan Reviewed: Labs, Medications, Previous Orders CHANTEL GILES MD Apr 28, 2024 19:04
[2024-04-29] VITALS (8 sets, daily range): BP systolic 131–167; BP diastolic 69–99; PULSE 82–100; RESP 17–20; TEMP 97.8–98.3; O2SAT 91–98
[2024-04-29] MEDS: POTASSIUM EFFERVESENT TAB 25 MEQ PO SCH (10:42)
[2024-04-29] MEDS ORDERED: SACC250C PO (13:16)
[2024-04-29] MEDS ORDERED: CLIN150C18 PO (13:16)
[2024-04-29] MEDS ORDERED: HYDR25TA5 PO (13:16)
[2024-04-30 01:00] VITALS: BP 136/78; PULSE 85; RESP 20; TEMP 98.3; O2SAT 94
[2024-04-30 05:00] VITALS: BP 159/98; PULSE 89; RESP 18; TEMP 98.3; O2SAT 99
[2024-04-30 08:00] VITALS: PULSE 83
[2024-04-30 09:00] VITALS: BP 141/76; PULSE 80; RESP 18; TEMP 97.9; O2SAT 96
[2024-04-30] MEDS ORDERED: BUPRTAB PO (12:50)
--- NOTE | 2024-04-30 12:52 | DVHPN2 ---
Subjective Patient denies any symptoms. Reviewed: Care Plan, H&P, Labs, Medications Changes from previous H/P or p: No Changes General: Per HPI Eyes: No Pain, No Vision change, No Conjunctivae inflammation, No Eyelid inflammation, No Other, No Redness ENT: No Ear pain, No Ear discharge, No Nose pain, No Nose discharge, No Nose congestion, No Mouth pain, No Mouth swelling, No Throat pain, No Throat swelling, No Other Cardiovascular: No Chest Pain, No Palpitations, No Orthopnea, No Paroxysmal Noc. Dyspnea; Edema (Bilateral lower extremity swelling); No Lt Headedness, No Other Respiratory: No Cough, No Dry, No Shortness of breath, No SOB with excertion, No Wheezing, No Hemoptysis, No Pleuritic Pain, No Sputum, No Other Gastrointestinal: No Nausea, No Vomiting, No Abdominal Pain, No Diarrhea, No Constipation, No Melena, No Hematochezia, No Other Genitourinary: No Dysuria, No Frequency, No Incontinence, No Hematuria, No Retention, No Other Musculoskeletal: leg pain Skin: No Rash, No Lesions, No Jaundice, No Bruising, No Other Objective Vitals Vital Signs Date Time Temp Pulse Resp B/P (MAP) Pulse Ox O2 Delivery O2 Flow Rate FiO2 04/30/24 09:26 141/76 04/30/24 09:00 97.9 80 18 96 97.9 04/30/24 08:00 Room Air* 0 21 Intake/Output Intake and Output 04/30/24 07:00 Intake Total 1546 ml Output Total 3200 ml Balance -1654 ml Intake Oral 1496 ml IV Total 50 ml Output Urine Total 3200 ml General Appearance: Alert, Oriented X3, Cooperative, No acute distress, Other (Obesity) HEENT: Atraumatic, PERRLA Lungs: Clear to auscultation, Normal air movement Cardiovascular: Normal S1, Normal S2 Abdomen: Normal bowel sounds, Soft, No tenderness, No hepatospenomegaly, No masses Musculoskeletal: Normal sensory function, Normal motor function Extremities: Other (Bilateral lower extremity swelling and redness) Neuro: Normal gait, Normal speech Skin: Dry, Intact Psych/Mental Status: Mental status NL, Mood NL Medications Current Medications Medications Dose Ordered Sig/Martha Route Start Time Stop Time Status Last Admin Dose Admin Nitroglycerin 0.4 mg Q5MINP PRN SL 04/27/24 14:45 Ceftriaxone Sodium 50 ml @ 100 mls/hr DAILY@09 IV 04/28/24 09:00 04/30/24 09:21 100 MLS/HR Clindamycin HCl 300 mg Q8HR PO 04/27/24 22:00 04/30/24 05:16 300 MG Saccharomyces Boulardii 250 mg DAILY PO 04/28/24 10:00 04/30/24 09:22 250 MG Furosemide 20 mg DAILY PO 04/28/24 10:00 04/30/24 09:26 20 MG Acetaminophen/ Hydrocodone Bitart 1 tab Q6HPRN PRN PO 04/27/24 14:45 04/29/24 11:45 1 TAB Acetaminophen 500 mg Q8HP PRN PO 04/27/24 14:45 04/30/24 03:02 500 MG Ondansetron HCl 4 mg Q6HP PRN IV 04/27/24 14:45 Potassium Bicarbonate 25 meq DAILY PO 04/29/24 10:00 04/30/24 09:22 25 MEQ Laboratory Results Laboratory Tests 04/28/24 04:57 Microbiology Microbiology Date/Time Source Procedure Growth Status 04/27/24 12:49 Blood Blood Culture - Preliminary NO GROWTH AFTER 48 HOURS OF INCUBATION. Resulted Labs and/or images reviewed: Labs reviewed by me, Image(s) reviewed by me Assessment/Plan Assessment/Plan Impression: -bilateral lower extremity cellulitis -rule out acute decompensated diastolic heart failure -rule out DVT -obesity -? Acute kidney injury versus chronic kidney disease -? Major depressive disorder -history of alcoholism -rhabdomyolysis -amphetamine abuse Plan: -events: No events overnight. Patient was positive for amphetamines -Psych consult: recommendations reviewed. -continue IV diuresis with potassium replacement -IV antibiotic therapy: Clindamycin, Rocephin -DVT study of lower extremities : Negative -pain management -echocardiogram, normal EF Total time spent with patient discussing and formulating plan of care: 35 minutes. This medical document was created using an electronic medical record system with [employer] dictation system. Although this document has been carefully reviewed, there may still be some phonetic and typographical errors. These areas are purely typographical due to imperfections of the software programs, and do not reflect any compromise in the patient's medical care. Plan discussed with: Patient, Other (RN) My Orders Orders - DAVID VIRK NP Procedure Category Date Status Time Initiate Vte ANNI 04/29/24 In Process Prophylaxis 23:51 Pt Request For Service PT 04/30/24 Logged 07:53 Discharge DISCHARGE 04/30/24 Transmitted 11:20 Date of Service: Apr 29, 2024 Billing Provider: DAVID VIRK NP Common Visit Codes: [id number] INP/OBS CARE(HIGH) DAVID VIRK NP Apr 30, 2024 12:52
--- NOTE | 2024-04-30 12:59 | DVHDS2 ---
Discharge Summary Date of Admission Apr 27, 2024 at 14:41 Date of Discharge: Apr 30, 2024 Admitting Diagnosis BLE cellulitis Labs/Diagnostic Data: Laboratory Results Test 04/28/24 04:57 04/27/24 16:10 04/27/24 14:55 04/27/24 12:45 White Blood Count 7.2 10^3/uL (4.4-10.8) Red Blood Count 4.23 10^6/uL (4.0-5.20) Hemoglobin 12.0 g/dL (12.2-16.2) Hematocrit 37.5 % (36.0-46.0) Mean Corpuscular Volume 88.7 fL (80.0-100.0) Mean Corpuscular Hemoglobin 28.5 pg (28.0-32.0) Mean Corpuscular Hemoglobin Concent 32.1 g/dL (32.0-36.0) Red Cell Distribution Width 16.1 % (11.8-14.3) Platelet Count 230 10^3/uL (140-450) Mean Platelet Volume 8.6 fL (6.9-10.8) Neutrophils (%) (Auto) 55.6 % (37.0-80.0) Lymphocytes (%) (Auto) 28.8 % (10.0-50.0) Monocytes (%) (Auto) 9.5 % (0.0-12.0) Eosinophils (%) (Auto) 5.9 % (0.0-7.0) Basophils (%) (Auto) 0.2 % (0.0-2.0) Neutrophils # (Auto) 4.0 10 ^3/uL (1.6-8.6) Lymphocytes # (Auto) 2.1 10 ^3/uL (0.4-5.4) Monocytes # (Auto) 0.7 10 ^3/uL (0-1.3) Eosinophils # (Auto) 0.4 10 ^3/uL (0-0.8) Basophils # (Auto) 0 10 ^3/uL (0-0.2) Nucleated Red Blood Cells 0.1 % Sodium Level 141 mmol/L (136-145) Potassium Level 3.7 mmol/L (3.5-5.1) Chloride Level 107 mmol/L (98-107) Carbon Dioxide Level 25 mmol/L (20-31) Anion Gap 9 (5-15) Blood Urea Nitrogen 25 mg/dL (9-23) Creatinine 1.26 mg/dL (0.550-1.02) Glomerular Filtration Rate Calc 49 mL/min (>90) BUN/Creatinine Ratio 19.8 (10.0-20.0) Serum Glucose 95 mg/dL (74-106) Calcium Level 9.1 mg/dL (8.7-10.4) Urine Opiates Screen Neg (NEGATIVE) Urine Fentanyl Screen Neg (NEGATIVE) Urine Barbiturates Screen Neg (NEGATIVE) Urine Phencyclidine Screen Neg (NEGATIVE) Urine Amphetamines Screen Pos (NEGATIVE) Urine Benzodiazepines Screen Neg (NEGATIVE) Urine Cocaine Screen Neg (NEGATIVE) Urine Cannabinoids Screen Neg (NEGATIVE) D-Dimer, Quantitative 1.74 mg/L FEU (0.0-0.49) Creatine Kinase 219 U/L (34-145) B-Type Natriuretic Peptide 29.80 pg/mL (0-100) Other Laboratory Tests 04/28/24 04:57 Brief Hx & Hospital Course: History of Present Illness The patient was a 58-year-old female presenting to the emergency room with reports of generalized weakness, mechanical fall, as well as severe depression. Patient was states that she has been having trouble getting out of bed over the past one week secondary to being severely depressed. She states that she fell out of her bed approximately 2:00 a.m., was not found for approximately 3-4 hours later by her boyfriend. Patient denies having any pain to any joints or extremities as well as exhibiting no limited range of movement. Patient was report having worsening swelling and redness to her lower extremities as well as fluid in her lungs. Significant history of the patient includes hypertension, and cholecystectomy. Course of Hospitalization: Patient was started on Rocephin and Clindamycin. UDS positive for Amphetamines. Echo with normal EF. Psychiatry consultation obtained. Recommendations reviewed. Lifestyle modification provided to patient for abstaining from illicit drug use. Patient will be kept on oral clindamycin for 5 more days and be prescribed Welbutrin xl 150mg po daily. She is instructed to follow-up with PCP in 1-2 weeks as well as Psychiatry in 2-3 weeks. Pt. verbalized an understanding. All questions answered. Physical examination General: Alert and Oriented x3. No acute distress. Well-nourished. Obese Eyes: EOMI. Anicteric. HENT: Moist mucous membranes. Lungs: Clear to auscultation bilaterally. No accessory muscle use. Cardiovascular: Regular rate and rhythm. No murmur. No JVD. Abdomen: Soft, non-tender and non-distended. No palpable masses. Extremities: No edema. Non-tender. Skin: No rashes or lesions. Warm. Neurologic: No focal neurological deficits. CN II-XII grossly intact, but not individually tested. Psychiatric: Cooperative. Appropriate mood and affect. Total time spent with patient discussing and formulating plan of care: 35 minutes. This medical document was created using an electronic medical record system with [employer] dictation system. Although this document has been carefully reviewed, there may still be some phonetic and typographical errors. These areas are purely typographical due to imperfections of the software programs, and do not reflect any compromise in the patient's medical care. Consults/Reason for consult Psychiatry: MDD Condition at Discharge: Fair Final Diagnosis/Problems List BLE cellulitis Secondary Diagnosis: -rule out acute decompensated diastolic heart failure -rule out DVT -obesity -Acute kidney injury -Major depressive disorder -history of alcoholism -rhabdomyolysis -amphetamine abuse Discharge Disposition: Home Discharge Instruct/Medications Diet: Cardiac 2g Na,low cholest Activity: No Restrictions, As Tolerated Follow Up/Referral: PCP in 2 weeks Medications: Clindamycin 300mg po tid x 5 days Welbutrin xl 150mg po daily 36 Discharge Statement: "Patient was advised to return to the ER or call 911 if any headaches, dizziness, shortness of breath, chest pain, abdominal pain, bleeding, fevers, or worsening of medical condition. Patient was counseled about treatment plan, medications, possible side effects, patientverbalized understanding. All questions were answered to the best of my ability. This discharge took greater then 30 minutes in planning, reviewing documentation, counseling the patient, and discussing with other team members." ASSESSMENT ASSESSMENT Assessment BLE cellulitis Date of Service: Apr 30, 2024 Billing Provider: DAVID VIRK NP Common Visit Codes: 36473-PTR/OBS DISCH DAY >30min Secondary Visit Codes: [id number] CHNG SMOKING >10MIN DAVID VIRK NP Apr 30, 2024 12:59
[2024-04-30 13:00] VITALS: BP_SYST 115; BP_SYST 164; BP_DIAS 68; BP_DIAS 95; PULSE 85; RESP 18; TEMP 97.9; O2SAT 96
== END 2024-04-30 14:45 | disposition home or self-care (01) | DRG 194 ==
LOC: EDBD 12:02 → ER 12:02 → OVERFLOW 14:41 → TELE-EAST 21:16
PROVIDERS: ADMIT Nurse Practitioner Acute Care; ATTEND Nurse Practitioner Acute Care
DX: I11.0 Hypertensive heart disease with heart failure (principal); N17.9 Acute kidney failure, unspecified; M62.82 Rhabdomyolysis; L03.115 Cellulitis of right lower limb; L03.116 Cellulitis of left lower limb; Z79.01 Long term (current) use of anticoagulants; I50.33 Acute on chronic diastolic (congestive) heart failure; Z68.43 Body mass index [BMI] 50.0-59.9, adult; E11.9 Type 2 diabetes mellitus without complications; F10.10 Alcohol abuse, uncomplicated; Y90.9 Presence of alcohol in blood, level not specified; F15.10 Other stimulant abuse, uncomplicated; J44.9 Chronic obstructive pulmonary disease, unspecified; E66.9 Obesity, unspecified; R09.89 Other specified symptoms and signs involving the circulatory and respiratory systems; Z88.5 Allergy status to narcotic agent; Z79.891 Long term (current) use of opiate analgesic; Z79.899 Other long term (current) drug therapy; Z79.2 Long term (current) use of antibiotics; Z90.49 Acquired absence of other specified parts of digestive tract; Z90.710 Acquired absence of both cervix and uterus; Z87.891 Personal history of nicotine dependence; Z63.4 Disappearance and death of family member
CPT/HCPCS: 36415; 71045; 80048; 80307; 82550; 83880; 85025; 85379; 87040; 93306; 93970; 96365; 96375; 97163; G0378; J3490